=== PATIENT | male | born 1935 | race Caucasian/White ===

== ENCOUNTER 2016-03-02 06:15 | Day surgery (SDC) | payer OTHER ==
[2016-03-01 14:23] VITALS: BMI 27.3
[~2016-03-02 06:15] MED LIST: ACETAMINOPHEN 325 MG TABLET (FP) PO PRN; CHONDROITIN SU A/HYALUR SOD 1 KIT IO ONE; CIPROFLOXACIN HCL 0.3% OPHTH 2.5ML BOTTLE OP SCH; CYCLOPENTOLATE HCL 1% OPHTH SOLN 2 ML BOTTLE OP SCH; EPINEPHrine/PF 1 MG/1 ML (1:1,000) AMPULE SQ ONE; FLURBIPROFEN 0.03% OPHTH SOLN 2.5 ML BOTTLE OP SCH; LIDOCAINE HCL 1% PRESERVATIVE FREE - 30ML VIAL IO ONE; LIDOCAINE HCL 2% JELLY (5 ML/TUBE) TP ONE; PHENYLEPHRINE 2.5% OPHTH SOLN 15 ML BOTTLE OP SCH; POVIDONE-IODINE 5% OPHTHALMIC PREP 30 ML SOLUTION OS ONE; TROPICAMIDE 1% OPHTH SOLN 15 ML BOTTLE OP SCH
[2016-03-02 06:37] VITALS: TEMP 98.2
[2016-03-02] MEDS ORDERED: TROPICAMIDE 1% OPHTH SOLN 15 ML BOTTLE ONE (06:41)
[2016-03-02] MEDS ORDERED: FLURBIPROFEN 0.03% OPHTH SOLN 2.5 ML BOTTLE ONE (06:41)
[2016-03-02] MEDS ORDERED: CIPROFLOXACIN 0.3% EYE DROPS 5 ML BOTTLE ONE (06:41)
[2016-03-02] MEDS ORDERED: CYCLOPENTOLATE HCL 1% OPHTH SOLN 2 ML BOTTLE ONE (06:41)
[2016-03-02] MEDS ORDERED: PHENYLEPHRINE 2.5% OPHTH SOLN 15 ML BOTTLE ONE (06:41)
[2016-03-02] MEDS ORDERED: PHENYLEPHRINE 2.5% OPHTH SOLN 15 ML BOTTLE OS ONE ×2 (06:50→07:00)
[2016-03-02] MEDS ORDERED: CIPROFLOXACIN HCL 0.3% OPHTH 2.5ML BOTTLE OS ONE ×2 (06:50→07:00)
[2016-03-02] MEDS ORDERED: TROPICAMIDE 1% OPHTH SOLN 15 ML BOTTLE OS ONE ×2 (06:50→07:00)
[2016-03-02] MEDS ORDERED: FLURBIPROFEN 0.03% OPHTH SOLN 2.5 ML BOTTLE OS ONE ×2 (06:50→07:00)
[2016-03-02] MEDS ORDERED: CYCLOPENTOLATE HCL 1% OPHTH SOLN 2 ML BOTTLE OS ONE (06:50)
[2016-03-02] MEDS ORDERED: CYCLOPENTOLATE 2% OPHTH SOLN 2 ML BOTTLE OS ONE (07:00)
[2016-03-02] MEDS ORDERED: EPINEPHrine/PF 1 MG/1 ML (1:1,000) AMPULE ONE (07:18)
[2016-03-02] MEDS ORDERED: LIDOCAINE HCL/PF 1% SDV 5ML VIAL ONE (07:18)
[2016-03-02] MEDS ORDERED: LIDOCAINE HCL 2% JELLY (5 ML/TUBE) ONE (07:19)
[2016-03-02] MEDS ORDERED: VANCOMYCIN 500 MG VIAL (RESTRICTED TO ID ONLY) ONE (07:19)
[2016-03-02] MEDS ORDERED: WATER FOR INJ,STERILE 10 ML ONE (07:19)
[2016-03-02] MEDS ORDERED: POVIDONE-IODINE 5% OPHTHALMIC PREP 30 ML SOLUTION ONE (07:20)
[2016-03-02] MEDS ORDERED: LIDOCAINE HCL 2% JELLY (5 ML/TUBE) TP ONE (07:55)
[2016-03-02] MEDS ORDERED: MIDAZOLAM HCL 2 MG/2 ML SINGLE DOSE VIAL ONE (08:05)
[2016-03-02] MEDS ORDERED: POVIDONE-IODINE 5% OPHTHALMIC PREP 30 ML SOLUTION OS ONE (08:08)
[2016-03-02] MEDS ORDERED: CHONDROITIN SU A/HYALUR SOD 1 KIT IO ONE (08:16)
[2016-03-02] MEDS ORDERED: LIDOCAINE HCL 1% PRESERVATIVE FREE - 30ML VIAL IO ONE (08:16)
[2016-03-02] MEDS ORDERED: EPINEPHrine/PF 1 MG/1 ML (1:1,000) AMPULE SQ ONE (08:19)
[2016-03-02 12:17] VITALS: BP 128/67; PULSE 52
--- NOTE | 2016-03-02 17:31 | OP ---
DATE OF OPERATION: 03/02/2016 OPERATION: Phacoemulsification with posterior chamber intraocular lens implantation, left eye. Lens used [id number], Diopter power, Serial No. [id number] PREOPERATIVE DIAGNOSIS: Cataract, left eye. POSTOPERATIVE DIAGNOSIS: Cataract, left eye. SURGEON: Sara Billingsley M.D. ANESTHESIA: Topical MAC. COMPLICATIONS: None. PROCEDURE: The patient was brought to the operating room and correctly identified along with the operative site and the correct intraocular lens valentin. The patient was then prepped and draped in the usual sterile fashion including 5% Betadine solution in the conjunctival sac and an eyelid drape. An eyelid speculum was then placed in the eye. A paracentesis port was created and approximately 0.5 mL of preservative free Lidocaine was then injected into the eye. Viscoelastic was then injected to inflate the anterior chamber. A temporal clear corneal wound was created. A continuous circular capsulorrhexis was performed. The nucleus was then hydrodissected with BSS and removed with phacoemulsification. The remaining cortical material was irrigated and aspirated. Viscoelastic was injected to inflate the capsular bag and the intraocular lens was then implanted into the capsular bag. The remaining Viscoelastic was irrigated and aspirated from the eye. The IOL was noted to be well centered and completely covered by the anterior capsulorrhexis. Topical vancomycin was placed and the eye patched and shielded. All wounds were tested and found to be watertight. No suture was placed. The eye was then shielded. The patient was then discharged from the operating room in stable condition. SARA BILLINGSLEY M.D. [id number]
== END 2016-03-02 09:50 | disposition home or self-care (01) ==
LOC: JASU-SURG 06:15
PROVIDERS: ATTEND Ophthalmology
PROC: 08RK3JZ Replacement of Left Lens with Synthetic Substitute, Percutaneous Approach (ICD-10-PCS; principal; 2016-03-02 08:00)
DX: H26.9 Unspecified cataract (principal)

== ENCOUNTER 2016-03-16 06:21 | Day surgery (SDC) | payer OTHER ==
[2016-03-14 15:41] VITALS: BMI 27.3
[~2016-03-16 06:21] MED LIST changes: -CHONDROITIN SU A/HYALUR SOD 1 KIT IO ONE; -CIPROFLOXACIN HCL 0.3% OPHTH 2.5ML BOTTLE OP SCH; -CYCLOPENTOLATE HCL 1% OPHTH SOLN 2 ML BOTTLE OP SCH; -EPINEPHrine/PF 1 MG/1 ML (1:1,000) AMPULE SQ ONE; -FLURBIPROFEN 0.03% OPHTH SOLN 2.5 ML BOTTLE OP SCH; -LIDOCAINE HCL 1% PRESERVATIVE FREE - 30ML VIAL IO ONE; -LIDOCAINE HCL 2% JELLY (5 ML/TUBE) TP ONE; -PHENYLEPHRINE 2.5% OPHTH SOLN 15 ML BOTTLE OP SCH; -POVIDONE-IODINE 5% OPHTHALMIC PREP 30 ML SOLUTION OS ONE; -TROPICAMIDE 1% OPHTH SOLN 15 ML BOTTLE OP SCH
[2016-03-16] MEDS ORDERED: CIPROFLOXACIN 0.3% EYE DROPS 5 ML BOTTLE ONE (06:33)
[2016-03-16] MEDS ORDERED: FLURBIPROFEN 0.03% OPHTH SOLN 2.5 ML BOTTLE ONE (06:33)
[2016-03-16] MEDS ORDERED: TROPICAMIDE 1% OPHTH SOLN 15 ML BOTTLE ONE (06:34)
[2016-03-16] MEDS ORDERED: CYCLOPENTOLATE HCL 1% OPHTH SOLN 2 ML BOTTLE ONE (06:34)
[2016-03-16] MEDS ORDERED: PHENYLEPHRINE 2.5% OPHTH SOLN 15 ML BOTTLE ONE (06:34)
[2016-03-16 06:48] VITALS: TEMP 97.7
[2016-03-16] MEDS: CYCLOPENTOLATE HCL 1% OPHTH SOLN 2 ML BOTTLE OP SCH ×3 (06:55→07:10)
[2016-03-16] MEDS: TROPICAMIDE 1% OPHTH SOLN 15 ML BOTTLE OP SCH ×3 (06:55→07:10)
[2016-03-16] MEDS: FLURBIPROFEN 0.03% OPHTH SOLN 2.5 ML BOTTLE OP SCH ×3 (06:55→07:10)
[2016-03-16] MEDS: CIPROFLOXACIN HCL 0.3% OPHTH 2.5ML BOTTLE OP SCH ×3 (06:55→07:10)
[2016-03-16] MEDS: PHENYLEPHRINE 2.5% OPHTH SOLN 15 ML BOTTLE OP SCH ×2 (07:00→07:10)
[2016-03-16] MEDS ORDERED: ePHEDrine SULFATE 50 MG/1 ML AMPULE ONE ×2 (07:06)
[2016-03-16] MEDS ORDERED: SUCCINYLCHOLINE CHLORIDE 200 MG/10 ML VIAL ONE ×2 (07:06→07:51)
[2016-03-16] MEDS ORDERED: LIDOCAINE HCL/PF 1% SDV 5ML VIAL ONE (07:14)
[2016-03-16] MEDS ORDERED: EPINEPHrine/PF 1 MG/1 ML (1:1,000) AMPULE ONE (07:14)
[2016-03-16] MEDS ORDERED: LIDOCAINE HCL/PF 2% SDV 5ML VIAL ONE ×2 (07:15→07:55)
[2016-03-16] MEDS ORDERED: BUPIVACAINE HCL/PF 0.75% 10 ML VIAL ONE (07:15)
[2016-03-16] MEDS ORDERED: VANCOMYCIN 500 MG VIAL (RESTRICTED TO ID ONLY) ONE (07:15)
[2016-03-16] MEDS ORDERED: POVIDONE-IODINE 5% OPHTHALMIC PREP 30 ML SOLUTION ONE (07:15)
[2016-03-16] MEDS ORDERED: WATER FOR INJ,STERILE 10 ML ONE (07:15)
[2016-03-16] MEDS ORDERED: PROPOFOL 20 ML ONE (07:48)
[2016-03-16] MEDS ORDERED: BUPIVACAINE HCL/PF 0.75% 10 ML VIAL RB ONE (08:10)
[2016-03-16] MEDS ORDERED: LIDOCAINE HCL/PF 2% SDV 5ML VIAL PNB ONE (08:10)
[2016-03-16] MEDS ORDERED: POVIDONE-IODINE 5% OPHTHALMIC PREP 30 ML SOLUTION OD ONE (08:14)
[2016-03-16] MEDS ORDERED: EPINEPHrine/PF 1 MG/1 ML (1:1,000) AMPULE IO ONE (08:22)
[2016-03-16] MEDS ORDERED: CHONDROITIN SU A/HYALUR SOD 1 KIT IO ONE (08:22)
[2016-03-16] MEDS ORDERED: BSS (NA/CA/MG/K) BALANCED SALT SOLUTION OPHTH SOLN 15 ML BOTTLE OD ONE (08:22)
[2016-03-16] MEDS ORDERED: LIDOCAINE HCL 1% PRESERVATIVE FREE - 30ML VIAL IO ONE (08:22)
[2016-03-16] MEDS ORDERED: TRYPAN BLUE 0.5 ML DISP.SYRIN IO ONE (08:22)
[2016-03-16 09:21] VITALS: PULSE 50
[2016-03-16] MEDS ORDERED: LACTATED RINGERS SOLUTION 1,000 ML IV SCH (09:30)
[2016-03-16] MEDS ORDERED: TRYPAN BLUE 0.5 ML DISP.SYRIN ONE (10:19)
[2016-03-16 13:29] VITALS: BP 130/70
--- NOTE | 2016-03-16 19:45 | OP ---
DATE OF OPERATION: 03/16/2016 PREOPERATIVE DIAGNOSIS: Cataract, right eye. POSTOPERATIVE DIAGNOSIS: Cataract, right eye. PROCEDURE: Phacoemulsification of right cataract with posterior chamber intraocular lens implantation, capsule staining with Trypan blue. LENS USED: [id number], 21.5 diopter power, serial number [id number]. ANESTHESIA: Peribulbar/modified van Lint/MAC. COMPLICATIONS: None. PROCEDURE: The patient was brought to operating room, correctly identified along with the operative site as well as correct intraocular lens avlentin. He was then given a peribulbar block under sedation with 5 mL of 1:1 mixture of 2% lidocaine and 0.75% bupivacaine. Then 2 mL of the same mixture was given as a modified van Lint. The eye was then prepped and draped in the usual sterile fashion including 5% Betadine solution in the conjunctival sac and eyelid drape. An eyelid speculum was then placed into the right eye. A dense cataract was noted. A paracentesis port was created. Intracameral lidocaine, approximately 0.5 mL of 1% preservative-free lidocaine was given intracamerally. The capsule was then stained with Trypan blue beneath an air bubble and irrigated from the eye. Viscoelastic was injected into the anterior chamber and a temporal clear cornea was created. A continuous circular capsulorrhexis was performed. The nucleus was then hydro-dissected with BSS and removed with phacoemulsification via a [id number] approach. The cortical material was then irrigated and aspirated from the eye. The temporal clear corneal wound was noted to be gaping, perhaps somewhat small corneal burn. Viscoelastic was injected into the capsular bag and the lens injected into the capsular bag. The temporal clear cornea was still noted to be leaking, so a single 10-0 nylon suture was placed in it. A 2nd paracentesis port was created and bimanual irrigation and aspiration was performed of the viscoelastic. The wound was still noticed to leak and a 2nd 10-0 nylon suture was placed. At this time, with stromal hydration, the anterior chamber was noted to be stable and no leakage noted from the wound. The intraocular lens was noted to be well centered and covered by the anterior capsule border, anterior chamber formed and stable. Topical Vancomycin was given and the eye patched and shielded, and patient was discharged from the operating room in a stable condition. Abram [id number] MTDMalachi
== END 2016-03-16 10:15 | disposition home or self-care (01) ==
LOC: JASU-SURG 06:21
PROVIDERS: ATTEND Ophthalmology
PROC: 08RJ3JZ Replacement of Right Lens with Synthetic Substitute, Percutaneous Approach (ICD-10-PCS; principal; 2016-03-16 08:00)
DX: H26.9 Unspecified cataract (principal)

== ENCOUNTER 2016-08-18 16:13 | Emergency (ER) | payer OTHER ==
[2016-08-18 16:17] VITALS: BP 116/60; PULSE 64; TEMP 98.4; BMI 27.3
[2016-08-18] MEDS ORDERED: METHOCARBAMOL 500 MG TABLET PO ONE (16:51)
[2016-08-18] MEDS ORDERED: IBUPROFEN 400 MG TABLET (FP) PO ONE ×2 (16:51→17:23)
--- NOTE | 2016-08-18 16:55 | PDOC ---
History of Present Illness - General History Source: Patient Exam Limitations: No Limitations - History of Present Illness Initial Comments: 08/18/16 16:48 This patient is an 81-year-old M who presents to the ER with a complaint of 2 weeks of left flank pain Pt states his symptoms began 2 weeks ago He report sharp left flank pain which is bearable when he is seated but worsens with standing Pain is 7/10 with standing, no radiation down the leg, no bowel or bladder incontinence He denies fevers, chills, hematuria, pyuria He denies trauma to the left flank He denies rash He denies abdominal pain, diarrhea He has not previously had symptoms like this PMH: HTN, HLD PSH: denies Meds: Metoprolol 08/18/16 16:51 GENERAL/CONSTITUTIONAL: No: fever, chills, weakness, loss of appetite. HEAD, EYES, EARS, NOSE AND THROAT: No: change in vision, ear pain, discharge, sore throat, throat swelling. CARDIOVASCULAR: No: chest pain, lightheadedness, palpitations, syncope RESPIRATORY: No: cough, shortness of breath, wheezing, hemoptysis, stridor. GASTROINTESTINAL: No: nausea, vomiting, diarrhea, abdominal cramping, rectal bleeding, constipation. GENITOURINARY: No: dysuria, hematuria, frequency, urgency, flank pain. MUSCULOSKELETAL: Yes: back/flank pain No: neck pain, muscle swelling or pain SKIN: No: lesions, pallor, rash or easy bruising. NEUROLOGIC: No: headache, vertigo, paresthesias, weakness ENDOCRINE: No: unexplained weight gain or loss HEMATOLOGIC/LYMPHATIC: No: anemia, easy bleeding, swelling nodes. GENERAL: The patient is in no acute distress. HEAD: Normal with no signs of trauma. EYES: PERRLA, EOMI, sclera anicteric, conjunctiva clear. ENT: Ears normal, nares patent, oropharynx clear without exudates. Moist mucous membranes. NECK: Normal range of motion, supple without lymphadenopathy, JVD, or masses. LUNGS: Breath sounds equal, clear to auscultation bilaterally. No wheezes, and no crackles. HEART:Regular rate and rhythm, normal S1 and S2 without murmur, rub or gallop. ABDOMEN: Soft, nontender, normoactive bowel sounds. No guarding, no rebound. No masses palpable. EXTREMITIES: Normal range of motion, no edema. No clubbing or cyanosis. No erythema, or tenderness. NEUROLOGICAL: Cranial nerves II through XII grossly intact. Normal speech. No focal neurological deficits. MUSCULOSKELETAL: Yes: left flank pain Back non-tender to palpation, no CVA tenderness SKIN: No lesions on skin Warm, Dry, normal turgor, no rashes or lesions noted. <Manju Denton - Last Filed: 08/18/16 18:54> <Melina Barton - Last Filed: 08/18/16 18:58> - General Chief Complaint: Pain Stated Complaint: PAIN, ACUTE Time Seen by Provider: 08/18/16 16:19 Past History - Past Medical History Anemia: No Asthma: No Cancer: No Cardiac Disorders: Yes (ARRHYTHMIA ?) CVA: No COPD: No CHF: No Dementia: No Diabetes: No GI Disorders: No Disorders: No HTN: Yes Hypercholesterolemia: Yes Liver Disease: No Seizures: No Thyroid Disease: No - Immunization History Immunization Up to Date: Yes - Psycho/Social/Smoking Cessation Hx Anxiety: No Suicidal Ideation: No Smoking Status: No Smoking History: Never smoked Have you smoked in the past 12 months: No Number of Cigarettes Smoked Daily: 0 Hx Alcohol Use: No Drug/Substance Use Hx: No Substance Use Type: None Hx Substance Use Treatment: No <Manju Denton - Last Filed: 08/18/16 18:54> <Melina Barton - Last Filed: 08/18/16 18:58> - Past Medical History Allergies/Adverse Reactions: Allergies Allergy/AdvReac Type Severity Reaction Status Date / Time No Known Allergies Allergy Verified 08/18/16 16:14 Home Medications: Ambulatory Orders Simvastatin [Zocor -] 20 mg PO HS 07/13/13 Amlodipine Besylate 5 mg PO HS 03/01/16 Aspirin [ASA -] 81 mg PO DAILY 03/01/16 Bisoprolol Fumarate [Zebeta (Nf) -] 5 mg PO DAILY 03/01/16 Ibuprofen [Motrin -] 400 mg PO TID PRN #21 tablet 08/18/16 Lidocaine 5% Patch [Lidoderm Patch -] 1 patch TP DAILY PRN #30 patch 08/18/16 *Physical Exam - Vital Signs Last Vital Signs Temp Pulse Resp BP Pulse Ox 98.4 F 64 18 116/60 99 08/18/16 16:13 08/18/16 16:13 08/18/16 16:13 08/18/16 16:13 08/18/16 16:13 <Manju Denton - Last Filed: 08/18/16 18:54> - Vital Signs Last Vital Signs Temp Pulse Resp BP Pulse Ox 98.4 F 64 18 116/60 99 08/18/16 16:13 08/18/16 16:13 08/18/16 16:13 08/18/16 16:13 08/18/16 16:13 <Melina Barton - Last Filed: 08/18/16 18:58> ED Treatment Course - LABORATORY CBC & Chemistry Diagram: 08/18/16 16:42 08/18/16 16:42 - RADIOLOGY Radiology Studies Ordered: Category Date Time Status SPIRAL- RENAL-STONE CT [CT] Stat CT Scan 08/18/16 16:48 Ordered <Manju Denton - Last Filed: 08/18/16 18:54> - LABORATORY CBC & Chemistry Diagram: 08/18/16 16:42 08/18/16 16:42 - ADDITIONAL ORDERS Additional order review: Laboratory Results 08/18/16 08/18/16 17:21 16:42 Sodium 140 Potassium 4.3 Chloride 101 Carbon Dioxide 31 Anion Gap 8 BUN 22 H D Creatinine 1.2 Creat Clearance w eGFR 57.96 Random Glucose 97 Calcium 8.7 Total Bilirubin 1.3 H AST 18 ALT 19 Alkaline Phosphatase 63 Total Protein 7.7 Albumin 3.7 Urine Color Yellow Urine Appearance Clear Urine pH 6.0 Urine Protein Negative Urine Glucose (UA) Negative Urine Ketones Negative Urine Blood Negative Urine Nitrite Negative Urine Bilirubin Negative Urine Urobilinogen 4.0 e.u/dl Ur Leukocyte Esterase Negative 08/18/16 16:42 RBC 4.77 MCV 95.6 MCHC 34.1 RDW 11.9 MPV 8.5 Neutrophils % 55.0 D Lymphocytes % 31.2 D Monocytes % 8.6 Eosinophils % 4.8 H Basophils % 0.4 - RADIOLOGY Radiograph Interpretation: EXAM#: TYPE/EXAM: RESULT: [id number] CT/SPIRAL- RENAL-STONE CT Renal stone CT without contrast Clinical information: left flank pain No urinary tract calculus or hydroureteronephrosis is identified. There has been no definite interval change in comparison to prior CT studies of 06/05/2014 and 2011. A 0.4 cm right renal and 5.4 cm left renal cortical cysts are seen. Prostate enlargement which is at least moderate. Mild diffuse urinary bladder wall thickening probably secondary to chronic outlet obstruction. Left and right-sided colonic diverticulosis is noted without evidence of acute diverticulitis. There is no evidence of pneumoperitoneum, free intraperitoneal fluid or bowel obstruction. The liver, spleen, pancreas, gallbladder and adrenal glands demonstrate no discrete noncontrast pathology. There is no aortic aneurysm. No obvious lymphadenopathy is seen. The visualized osseous structures demonstrate no obvious CT evidence of acute pathology. Multilevel thoracolumbar degenerative disc changes with spondylosis. IMPRESSION: No evidence of urolithiasis or hydronephrosis. There are no definite CT findings of acute pathology. Colonic diverticulosis. Reported By: Satnam Chacon MD 08/18/16 3406 - Medications Given in the ED: ED Medications Discontinued Medications Generic Name Dose Route Start Last Admin Trade Name Freq PRN Reason Stop Dose Admin Ibuprofen 400 mg 08/18/16 16:51 08/18/16 17:22 Motrin - PO 08/18/16 16:52 400 mg ONCE ONE Administration Methocarbamol 500 mg 08/18/16 16:51 08/18/16 17:22 Robaxin - PO 08/18/16 16:52 500 mg ONCE ONE Administration <Melina Barton - Last Filed: 08/18/16 18:58> Medical Decision Making - Medical Decision Making 08/18/16 16:55 81 yo M presenting to the ER with a complaint of left flank pain DD includes Kidney stone, musculoskeletal pain, herniated disc, spinal stenosis Unlikely Retroperitoneal rupture AAA Will do Basic labs UA Spiral CT Will re assess 08/18/16 18:03 Laboratory Tests 08/18/16 16:42 WBC 5.4 Hgb 15.6 Hct 45.6 Plt Count 180 Neutrophils % 55.0 D Lymphocytes % 31.2 D 08/18/16 18:21 Laboratory Tests 08/18/16 08/18/16 16:42 17:21 Sodium 140 Potassium 4.3 Chloride 101 Carbon Dioxide 31 BUN 22 H D Creatinine 1.2 Random Glucose 97 Urine Blood Negative Urine Nitrite Negative Ur Leukocyte Esterase Negative Pending Spiral CT Unlikely kidney stones Must likely musculoskeletal pain 08/18/16 18:53 CT: no stones Will discharge to home Follow up with PMD <Manju Denton - Last Filed: 08/18/16 18:54> *DC/Admit/Observation/Transfer - Discharge Dispostion Admit: No <Manju Denton - Last Filed: 08/18/16 18:54> - Attestations Scribe Attestion: 08/18/16 18:58 Documentation prepared by Melina Barton, acting as paramedical aide for Manju Denton MD <Melina Barton - Last Filed: 08/18/16 18:58> Diagnosis at time of Disposition: Musculoskeletal back pain - Discharge Dispostion Disposition: HOME Condition at time of disposition: Stable - Prescriptions Prescriptions: Lidocaine 5% Patch [Lidoderm Patch -] 1 patch TP DAILY PRN #30 patch PRN Reason: Pain Ibuprofen [Motrin -] 400 mg PO TID PRN #21 tablet PRN Reason: Pain - Referrals Referrals: Lydia Landa MD [Primary Care Provider] - - Patient Instructions Printed Discharge Instructions: DI for Musculoskeletal Pain Additional Instructions: Sagar por jaime lugo al ER Por favor use medicamentos para el dolor segn lo prescrito Por favor, monitoree si presenta nuevos sntomas Usted debe hacer un seguimiento con dale mdico de atencin primaria dentro de 2- 3 gentile Thank you for coming to the ER today Please use pain medications as prescribed Please monitor yourself for any new symptoms You should follow up with your primary care physician within 2-3 days Print Language: BELARUSIAN
[2016-08-18] MEDS ORDERED: METHOCARBAMOL 500 MG TABLET ONE (17:22)
[2016-08-18 17:54] LABS: BASOPHIL 0.4 % (0-2.0); EOSINOPHIL 4.8 % (0-4.5); MCH 32.6 pg (25.7-33.7); MCHC 34.1 g/dl (32.0-35.9); MEAN CELL VOLUME 95.6 fl (80-96); MEAN PLT VOLUME 8.5 fl (7.5-11.1); PLATELET COUNT 180 K/MM3 (134-434); RDW 11.9 % (11.9-15.9); WHITE BLOOD COUNT 5.4 K/mm3 (4.0-10.0)
[2016-08-18 18:06] LABS: URINE APPEARANCE CLEAR; URINE BILIRUBIN NEGATIVE (NEGATIVE); URINE BLOOD NEGATIVE (NEGATIVE); URINE COLOR YELLOW; URINE GLUCOSE (UA) NEGATIVE (NEGATIVE); URINE KETONE NEGATIVE (NEGATIVE); URINE LEUK ESTERASE NEGATIVE (NEGATIVE); URINE NITRITE NEGATIVE (NEGATIVE); URINE PROTEIN NEGATIVE (NEGATIVE); URINE UROBILINOGEN 4.0 E.U/dl mg/dL (0.2-1.0)
[2016-08-18 18:18] LABS: ALBUMIN 3.7 g/dl (3.4-5.0); ALK PHOS 63 U/L (45-117); ANION GAP 8 (8-16); BILIRUBIN,TOTAL 1.3 mg/dL (0.2-1.0); CALCIUM 8.7 mg/dL (8.5-10.1); CO2 31 mmol/L (21-32); CREATININE 1.2 mg/dL (0.7-1.3); GLUCOSE,RANDOM 97 mg/dL (74-106); SGOT/AST 18 U/L (15-37); SGPT/ALT 19 U/L (12-78); TOT PROT 7.7 g/dl (6.4-8.2)
--- NOTE | 2016-08-21 12:48 | PDOC ---
Patient Follow-up (Call Back) - Post ED Follow - Up Chief Complaint: Pain Condition at time of discharge: Stable Disposition at time of original discharge: HOME Reason for Call Back: Abnwl. 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 pt is doing well no fever no pain.
== END 2016-08-18 19:06 | disposition home or self-care (01) ==
LOC: SUPCPDRO 16:13 → JER 16:13
DX: R10.32 Left lower quadrant pain (principal); K57.90 Diverticulosis of intestine, part unspecified, without perforation or abscess without bleeding; I10 Essential (primary) hypertension; E78.00 Pure hypercholesterolemia, unspecified
CPT/HCPCS: 36415; 74176; 80053; 81003; 85025; 87040; 87086; 87186; 99283-25

== ENCOUNTER 2017-02-28 15:46 | Emergency (ER) | payer OTHER ==
--- NOTE | 2017-02-28 15:50 | PDOC ---
Rapid Medical Evaluation Time Seen by Provider: 02/28/17 15:48 Medical Evaluation: Allergies Allergy/AdvReac Type Severity Reaction Status Date / Time No Known Allergies Allergy Verified 08/18/16 16:14 02/28/17 15:50 I have performed a brief in-person evaluation of this patient. The patient presents with a chief complaint of: RIBEIRO w/ dizziness in setting of elevated BP. H/o HLD, HTN. PMD is Nimco Pertinent physical exam findings:BP 190/90, otherwise stable w/ clear chest/ lungs I have ordered the following:ekg/labs The patient will proceed to the ED for further evaluation. 02/28/17 15:57
[2017-02-28 15:56] VITALS: BMI 28.5
[2017-02-28 16:15] LABS: URINE APPEARANCE CLEAR; URINE BILIRUBIN NEGATIVE (NEGATIVE); URINE BLOOD NEGATIVE (NEGATIVE); URINE COLOR COLORLESS; URINE GLUCOSE (UA) NEGATIVE (NEGATIVE); URINE KETONE NEGATIVE (NEGATIVE); URINE LEUK ESTERASE NEGATIVE (NEGATIVE); URINE NITRITE NEGATIVE (NEGATIVE); URINE PROTEIN NEGATIVE (NEGATIVE); URINE UROBILINOGEN NEGATIVE mg/dL (0.2-1.0)
[2017-02-28 16:17] LABS: BASO % 0.7 % (0-2.0); EOS % 4.2 % (0-4.5); HEMATOCRIT 51.5 % (35.4-49); HEMOGLOBIN 17.3 GM/dL (11.7-16.9); LYMPH % 37.5 % (8-40); MCH 32.2 pg (25.7-33.7); MCHC 33.6 g/dl (32.0-35.9); MEAN PLT VOLUME 8.1 fl (7.5-11.1); MONO % 7.9 % (3.8-10.2); NEUT % 49.7 % (42.8-82.8); PLATELET COUNT 157 K/MM3 (134-434); RBC 5.36 M/mm3 (4.00-5.60)
[2017-02-28 16:52] LABS: ALBUMIN 3.8 g/dl (3.4-5.0); ANION GAP 7 (8-16); BLOOD UREA NITROGEN 15 mg/dL (7-18); CHLORIDE 98 mmol/L (98-107); CO2 32 mmol/L (21-32); GLUCOSE,RANDOM 96 mg/dL (74-106); POTASSIUM 4.2 mmol/L (3.5-5.1); SGOT/AST 12 U/L (15-37); SGPT/ALT 18 U/L (12-78); SODIUM 137 mmol/L (136-145)
[2017-02-28 17:41] LABS: ALK PHOS 57 U/L (45-117); BILIRUBIN,TOTAL 1.5 mg/dL (0.2-1.0)
--- NOTE | 2017-02-28 20:18 | PDOC ---
History of Present Illness - General History Source: Patient Exam Limitations: No Limitations - History of Present Illness Initial Comments: 02/28/17 20:21 The patient is an 81 year old male with a significant PMH of HTN who presents to the emergency department after being sent by Dr. Chakraborty for evaluation of headache and elevated BP earlier today. The patient currently denies headache at presentation. The patient reports compliance with his medications. The patient denies chest pain, shortness of breath, headache and dizziness. Denies fever, chills, nausea, vomit, diarrhea and constipation. Denies dysuria, frequency, urgency and hematuria. Allergies: NKA Past surgical history: None reported. Social history: No reported cigarette, alcohol, or drug use. PCP: Dr. Chakraborty <Jae Koenig - Last Filed: 02/28/17 20:21> - General History Source: Patient <AyanRamón hernández - Last Filed: 02/28/17 21:37> - General Chief Complaint: Lightheaded Stated Complaint: PALPITATIONS, HEADACHE Time Seen by Provider: 02/28/17 15:48 Past History <Jae Koenig - Last Filed: 02/28/17 20:21> - Past Medical History Anemia: No Asthma: No Cancer: No Cardiac Disorders: Yes (ARRHYTHMIA ?) CVA: No COPD: No CHF: No Dementia: No Diabetes: No GI Disorders: No Disorders: No HTN: Yes Hypercholesterolemia: Yes Liver Disease: No Seizures: No Thyroid Disease: No - Immunization History Immunization Up to Date: Yes - Suicide/Smoking/Psychosocial Hx Smoking Status: No Smoking History: Never smoked Have you smoked in the past 12 months: No Number of Cigarettes Smoked Daily: 0 Information on smoking cessation initiated: No Hx Alcohol Use: No Drug/Substance Use Hx: No Substance Use Type: None Hx Substance Use Treatment: No <Ramón Stanford - Last Filed: 02/28/17 21:37> - Past Medical History Allergies/Adverse Reactions: Allergies Allergy/AdvReac Type Severity Reaction Status Date / Time No Known Allergies Allergy Verified 02/28/17 15:57 Home Medications: Ambulatory Orders Simvastatin [Zocor -] 20 mg PO HS 07/13/13 Amlodipine Besylate 5 mg PO HS 03/01/16 Aspirin [ASA -] 81 mg PO DAILY 03/01/16 Lidocaine 5% Patch [Lidoderm Patch -] 1 patch TP DAILY PRN #30 patch 08/18/16 Review of Systems - Review of Systems Able to Perform ROS?: Yes Comments:: 02/28/17 20:22 CONSTITUTIONAL: Absent: fever, chills, diaphoresis, generalized weakness, malaise, loss of appetite HEENT: Absent: rhinorrhea, nasal congestion, throat pain, throat swelling, difficulty swallowing, mouth swelling, ear pain, eye pain, visual Changes CARDIOVASCULAR: Absent: chest pain, syncope, palpitations, irregular heart rate, lightheadedness , peripheral edema RESPIRATORY: Absent: cough, shortness of breath, dyspnea with exertion, orthopnea, wheezing, stridor, hemoptysis GASTROINTESTINAL: Absent: abdominal pain, abdominal distension, nausea, vomiting, diarrhea, constipation, melena, hematochezia GENITOURINARY: Absent: dysuria, frequency, urgency, hesitancy, hematuria, flank pain, genital pain MUSCULOSKELETAL: Absent: myalgia, arthralgia, joint swelling SKIN: Absent: rash, itching, pallor HEMATOLOGIC/IMMUNOLOGIC: Absent: easy bleeding, easy bruising, lymphadenopathy, frequent infections ENDOCRINE: Absent: unexplained weight gain, unexplained weight loss, heat intolerance, cold intolerance NEUROLOGIC: (+) Headache (resolved). Absent: focal weakness or paresthesias, dizziness, unsteady gait, seizure, mental status changes, bladder or bowel incontinence PSYCHIATRIC: Absent: anxiety, depression, suicidal or homicidal ideation, hallucinations. <Jae Koenig - Last Filed: 02/28/17 20:21> *Physical Exam - Vital Signs Last Vital Signs Temp Pulse Resp BP Pulse Ox 98.2 F 53 L 19 190/90 02/28/17 15:50 02/28/17 15:50 02/28/17 15:50 02/28/17 15:50 - Physical Exam Comments: 02/28/17 20:22 GENERAL: Well developed, well nourished. Awake and alert. No acute distress. HEENT: Normocephalic, atraumatic. PERRLA, EOMI. No conjunctival pallor. Sclera are non- icteric. Moist mucous membranes. Oropharynx is clear. NECK: Supple. Full ROM. No JVD. Carotid pulses 2+ and symmetric, without bruits. No thyromegaly. No lymphadenopathy. CARDIOVASCULAR: Regular rate and rhythm. No murmurs, rubs, or gallops. Distal pulses are 2+ and symmetric. PULMONARY: No evidence of respiratory distress. Lungs clear to auscultation bilaterally. No wheezing, rales or rhonchi. ABDOMINAL: Soft. Non-tender. Non-distended. No rebound or guarding. No organomegaly. Normoactive bowel sounds. MUSCULOSKELETAL Normal range of motion at all joints. No bony deformities or tenderness. No CVA tenderness. EXTREMITIES: No cyanosis. No clubbing. No edema. No calf tenderness. SKIN: Warm and dry. Normal capillary refill. No rashes. No jaundice. NEUROLOGICAL: Alert, awake, appropriate. Cranial nerves 2-12 intact. No deficits to light touch and temperature in face, upper extremities and lower extremities. No motor deficits in the in face, upper extremities and lower extremities. Normoreflexic in the upper and lower extremities. Normal speech. Toes are downgoing bilaterally. Gait is normal without ataxia. PSYCHIATRIC: Cooperative. Good eye contact. Appropriate mood and affect. <Jae Koenig - Last Filed: 02/28/17 20:21> - Vital Signs Last Vital Signs Temp Pulse Resp BP Pulse Ox 98.2 F 53 L 19 190/90 02/28/17 15:50 02/28/17 15:50 02/28/17 15:50 02/28/17 15:50 <Ramón Stanford - Last Filed: 02/28/17 21:37> ED Treatment Course - LABORATORY CBC & Chemistry Diagram: 02/28/17 16:00 02/28/17 16:00 - ADDITIONAL ORDERS Additional order review: Laboratory Results 02/28/17 02/28/17 16:05 16:00 Sodium 137 Potassium 4.2 Chloride 98 Carbon Dioxide 32 Anion Gap 7 L BUN 15 D Creatinine 1.0 Creat Clearance w eGFR > 60 Random Glucose 96 Calcium 9.0 Total Bilirubin 1.5 H AST 12 L D ALT 18 Alkaline Phosphatase 57 Total Protein 8.0 Albumin 3.8 Urine Color Colorless Urine Appearance Clear Urine pH 7.0 Ur Specific [place] 1.001 Urine Protein Negative Urine Glucose (UA) Negative Urine Ketones Negative Urine Blood Negative Urine Nitrite Negative Urine Bilirubin Negative Urine Urobilinogen Negative Ur Leukocyte Esterase Negative 02/28/17 16:00 RBC 5.36 MCV 96.0 MCHC 33.6 RDW 12.0 MPV 8.1 Neutrophils % 49.7 Lymphocytes % 37.5 D Monocytes % 7.9 Eosinophils % 4.2 Basophils % 0.7 <Jae Koenig - Last Filed: 02/28/17 20:21> - LABORATORY CBC & Chemistry Diagram: 02/28/17 16:00 02/28/17 16:00 - ADDITIONAL ORDERS Additional order review: Laboratory Results 02/28/17 02/28/17 16:05 16:00 Sodium 137 Potassium 4.2 Chloride 98 Carbon Dioxide 32 Anion Gap 7 L BUN 15 D Creatinine 1.0 Creat Clearance w eGFR > 60 Random Glucose 96 Calcium 9.0 Total Bilirubin 1.5 H AST 12 L D ALT 18 Alkaline Phosphatase 57 Total Protein 8.0 Albumin 3.8 Urine Color Colorless Urine Appearance Clear Urine pH 7.0 Ur Specific [place] 1.001 Urine Protein Negative Urine Glucose (UA) Negative Urine Ketones Negative Urine Blood Negative Urine Nitrite Negative Urine Bilirubin Negative Urine Urobilinogen Negative Ur Leukocyte Esterase Negative 02/28/17 16:00 RBC 5.36 MCV 96.0 MCHC 33.6 RDW 12.0 MPV 8.1 Neutrophils % 49.7 Lymphocytes % 37.5 D Monocytes % 7.9 Eosinophils % 4.2 Basophils % 0.7 <Ramón Stanford - Last Filed: 02/28/17 21:37> Medical Decision Making - Medical Decision Making 02/28/17 20:19 Dr. Stanford: The scribe's documentation has been prepared under my direction and personally reviewed by me in its entirery. I confirm that the note above accurately reflects all work, treatment, procedures, and medical decision making performed by me. Pt feels better. Pt labs are stable. 02/28/17 21:34 BP 168/72 after IV Hydralazine 10mg. Pt will be discharged. Advised to follow up with his pcp. <Ramón Stanford - Last Filed: 02/28/17 21:37> *DC/Admit/Observation/Transfer - Attestations Scribe Attestion: 02/28/17 20:22 Documentation prepared by Jae Koengi, acting as medical administrator for Ramón Stanford DO. <Jae Koenig - Last Filed: 02/28/17 20:21> - Discharge Dispostion Admit: No <Ramón Stanford - Last Filed: 02/28/17 21:37> Diagnosis at time of Disposition: Hypertension - Discharge Dispostion Disposition: HOME Condition at time of disposition: Stable - Referrals Referrals: Lydia Landa MD [Primary Care Provider] - - Patient Instructions Printed Discharge Instructions: High Blood Pressure Additional Instructions: Please follow up with your doctor tomorrow or as soon as possible. Please discuss with him the need to modify your medications. Print Language: MARTINIQUAIS - Post Discharge Activity
[2017-02-28] MEDS ORDERED: hydrALAZINE HCL 20 MG/ML VIAL IVPUSH ONE (20:26)
[2017-02-28] MEDS ORDERED: hydrALAZINE HCL 20 MG/ML VIAL ONE (20:31)
[2017-02-28 21:37] VITALS: BP 168/72; PULSE 70; TEMP 97.5
== END 2017-02-28 21:45 | disposition home or self-care (01) ==
LOC: JER 15:46
PROC: 3E033GC Introduction of Other Therapeutic Substance into Peripheral Vein, Percutaneous Approach (ICD-10-PCS; principal; 2017-02-28)
DX: I10 Essential (primary) hypertension (principal); E78.00 Pure hypercholesterolemia, unspecified
CPT/HCPCS: 36415; 80053; 81003; 85025; 96374; 99282-25

== ENCOUNTER 2017-03-05 05:08 | Emergency (ER) | payer OTHER ==
--- NOTE | 2017-03-05 05:26 | PDOC ---
History of Present Illness - General History Source: Patient Exam Limitations: No Limitations - History of Present Illness Initial Comments: 03/05/17 07:05 Patient is an 81 year old male with a significant past medical history of who presents to the ED with complaints of high blood pressure that began this morning at 4 am. Patient reports waking up this morning with lower neck and bilateral lower extremity pain. He reports neck pain and bilateral lower extremity pain is a pressured pain that only begins when his blood pressure is increasing. Patient states he took his blood pressure after waking up, and took his BP medication after he realized it was high. He reports coming into the ED afterwards for further evaluation. Patient reports taking Metoprolol since 2004 but states he has recently started taking Hydrochlorothiazide. Denies chest pain, Sob. Denies nausea, vomiting. Denies fevers, chills. Denies change in vision, loss of consciousness. Denies any other symptoms. Allergies: None Social history: No smoking. No alcohol. No illicit drugs. Surgical history: None PMD: Dr. Chakraborty <Yuri Hill - Last Filed: 03/05/17 07:05> <Brianne Washington - Last Filed: 03/08/17 15:40> - General Chief Complaint: Blood Pressure Problem Stated Complaint: BLOOD PRESSURE PROBLEM Time Seen by Provider: 03/05/17 05:25 Past History <Yuri Hill - Last Filed: 03/05/17 07:05> - Past Medical History Anemia: No Asthma: No Cancer: No Cardiac Disorders: Yes (ARRHYTHMIA ?) CVA: No COPD: No CHF: No Dementia: No Diabetes: No GI Disorders: No Disorders: No HTN: Yes Hypercholesterolemia: Yes Liver Disease: No Seizures: No Thyroid Disease: No - Immunization History Immunization Up to Date: Yes - Suicide/Smoking/Psychosocial Hx Smoking Status: No Smoking History: Never smoked Have you smoked in the past 12 months: No Number of Cigarettes Smoked Daily: 0 Information on smoking cessation initiated: No Hx Alcohol Use: No Drug/Substance Use Hx: No Substance Use Type: None Hx Substance Use Treatment: No <Brianne Washington - Last Filed: 03/08/17 15:40> - Past Medical History Allergies/Adverse Reactions: Allergies Allergy/AdvReac Type Severity Reaction Status Date / Time No Known Allergies Allergy Verified 03/08/17 03:05 Home Medications: Ambulatory Orders Bisoprolol Fumarate 5 mg PO DAILY 03/05/17 Hydrochlorothiazide [Hctz -] 25 mg PO DAILY 03/05/17 Simvastatin 20 mg PO DAILY 03/05/17 Review of Systems - Review of Systems Able to Perform ROS?: Yes Comments:: 03/05/17 07:05 GENERAL/CONSTITUTIONAL: No fever or chills. No weakness. HEAD, EYES, EARS, NOSE AND THROAT: No change in vision. No ear pain or discharge. No sore throat. CARDIOVASCULAR: No chest pain or shortness of breath. RESPIRATORY: No cough, wheezing, or hemoptysis. GASTROINTESTINAL: No nausea, vomiting, diarrhea or constipation. GENITOURINARY: No dysuria, frequency, or change in urination. MUSCULOSKELETAL: No joint or muscle swelling or pain. No neck or back pain. SKIN: No rash NEUROLOGIC: No headache, vertigo, loss of consciousness, or change in strength/ sensation. ENDOCRINE: No increased thirst. No abnormal weight change. HEMATOLOGIC/LYMPHATIC: No anemia, easy bleeding, or history of blood clots. ALLERGIC/IMMUNOLOGIC: No hives or skin allergy. <Yuri Hill - Last Filed: 03/05/17 07:05> *Physical Exam - Vital Signs Last Vital Signs Temp Pulse Resp BP Pulse Ox 98.0 F 62 16 166/77 98 03/05/17 05:18 03/05/17 05:18 03/05/17 05:18 03/05/17 05:18 03/05/17 05:18 - Physical Exam Comments: 03/05/17 07:05 GENERAL: Awake, alert, and fully oriented, in no acute distress HEAD: No signs of trauma EYES: PERRLA, EOMI, sclera anicteric, conjunctiva clear ENT: Auricles normal inspection, hearing grossly normal, nares patent, oropharynx clear without exudates. Moist mucosa NECK: Normal ROM, supple, no lymphadenopathy, JVD, or masses LUNGS: Breath sounds equal, clear to auscultation bilaterally. No wheezes, and no crackles HEART: +Bradycardia on ECG. Regular rate and rhythm, normal S1 and S2, no murmurs, rubs or gallops ABDOMEN: Soft, nontender, normoactive bowel sounds. No guarding, no rebound. No masses EXTREMITIES: Normal range of motion, no edema. No clubbing or cyanosis. No cords, erythema, or tenderness NEUROLOGICAL: Cranial nerves II through XII grossly intact. Normal speech, normal gait SKIN: Warm, Dry, normal turgor, no rashes or lesions noted. <Yuri Hill - Last Filed: 03/05/17 07:05> - Vital Signs Last Vital Signs Temp Pulse Resp BP Pulse Ox 98.0 F 62 16 166/77 98 03/05/17 05:18 03/05/17 05:18 03/05/17 05:18 03/05/17 05:18 03/05/17 05:18 <Brianne Washington - Last Filed: 03/08/17 15:40> Medical Decision Making - Medical Decision Making 03/08/17 15:40 Pt signed out to the day team for further reevaluation. <Brianne Washington - Last Filed: 03/08/17 15:40> *DC/Admit/Observation/Transfer - Attestations Scribe Attestion: 03/05/17 07:06 Documentation prepared by Yuri Hill, acting as medical associate for Brianne Washington MD/DO. <Yuri Hill - Last Filed: 03/05/17 07:05> <Brianne Washington - Last Filed: 03/08/17 15:40> Diagnosis at time of Disposition: Hypertension - Discharge Dispostion Disposition: HOME Condition at time of disposition: Stable - Referrals Referrals: Lydia Landa MD [Primary Care Provider] - - Patient Instructions Printed Discharge Instructions: DI for High Blood Pressure, How to Monitor Your Blood Pressure at Home Additional Instructions: Follow-up with your primary care doctor within 1-2 days. Return to the emergency department if you have any new, worsening or concerning symptoms. Print Language: [place]
[2017-03-05 06:16] VITALS: TEMP 98; BMI 28.8
--- NOTE | 2017-03-05 09:38 | PDOC ---
*Physical Exam - Vital Signs Last Vital Signs Temp Pulse Resp BP Pulse Ox 98.0 F 60 18 159/78 99 03/05/17 05:18 03/05/17 07:30 03/05/17 07:30 03/05/17 07:30 03/05/17 07:30 Medical Decision Making - Medical Decision Making 03/05/17 09:43 Patient signed out to me by Dr. Washington, briefly patient presented to the emergency Department with asymptomatic hypertension. Chest x-ray and CT scan of the head were ordered and pending. Chest x-ray and CT had are unremarkable for acute pathology. CTH with possible acute vs chronic sinusitis although pt denies headache and has no fever/chills or sinus ttp, thus will not treat. Patient remains asymptomatic. Blood pressure elevated to 149 systolic this morning, discussed with patient and his son that they must follow up within 1-2 days with their PMD for better BP control. Patient advised to continue taking home medications and follow up with primary care doctor within 1-2 days. I discussed the physical exam findings, ancillary test results and final diagnoses with the patient. I answered all of the patient's questions. The patient was satisfied with the care received and felt comfortable with the discharge plan and treatment plan. The patient will call their primary care physician within 24 hours to arrange follow-up and will return to the Emergency Department with any new, persistent or worsening symptoms. *DC/Admit/Observation/Transfer Diagnosis at time of Disposition: Hypertension - Discharge Dispostion Disposition: HOME Condition at time of disposition: Stable Admit: No - Referrals Referrals: Lydia Landa MD [Primary Care Provider] - - Patient Instructions Printed Discharge Instructions: DI for High Blood Pressure, How to Monitor Your Blood Pressure at Home Additional Instructions: Follow-up with your primary care doctor within 1-2 days. Return to the emergency department if you have any new, worsening or concerning symptoms. Print Language: CZECH - Post Discharge Activity - Attestations Physician Attestion: 03/05/17 09:45 I, Dr. Kendall Rowell MD, attest that this document has been prepared under my direction and personally reviewed by me in its entirety. I further attest, that it accurately reflects all work, treatment, procedures and medical decision -making performed by me.
[2017-03-05 10:36] VITALS: BP 149/78; PULSE 66
--- NOTE | 2017-03-05 11:38 | EKG ---
Test Reason : Blood Pressure : / mmHG Vent. Rate : 052 BPM Atrial Rate : 052 BPM P-R Int : 170 ms QRS Dur : 096 ms QT Int : 442 ms P-R-T Axes : 056 -19 043 degrees QTc Int : 411 ms SINUS BRADYCARDIA POSSIBLE LEFT ATRIAL ENLARGEMENT BORDERLINE ECG WHEN COMPARED WITH ECG OF 05-JUN-2014 11:42, NONSPECIFIC T WAVE ABNORMALITY NO LONGER EVIDENT IN INFERIOR LEADS Confirmed by MD BLU, GINGER ([id number]) on 03/05/2017 11:38:02 AM Referred By: Confirmed By:GINGER HURT MD
== END 2017-03-05 10:37 | disposition home or self-care (01) ==
LOC: JER 05:08
DX: I10 Essential (primary) hypertension (principal)
CPT/HCPCS: 70450-TC; 71046-TC; 93005; 93010; 99282-25

== ENCOUNTER 2017-03-08 02:50 | Emergency (ER) | payer OTHER ==
[2017-03-08] MEDS ORDERED: ASPIRIN 81 MG CHEWABLE TABLETS PO ONE (02:59)
[2017-03-08 03:05] VITALS: TEMP 98.6; BMI 27.5
[2017-03-08] MEDS ORDERED: ASPIRIN 81 MG CHEWABLE TABLETS ONE (03:15)
--- NOTE | 2017-03-08 03:16 | PDOC ---
History of Present Illness - General Chief Complaint: Blood Pressure Problem Stated Complaint: CHEST PRESSURE Time Seen by Provider: 03/08/17 02:59 History Source: Patient - History of Present Illness Initial Comments: 03/08/17 03:15 81 year old male seen in the ED two days ago with hypertension, today patient c/ o hypertension, headache, difficulty sleeping, with dizziness denies chest pain , diaphoresis, fever/ chills, NVD, abdominal pain. Past History - Past Medical History Allergies/Adverse Reactions: Allergies Allergy/AdvReac Type Severity Reaction Status Date / Time No Known Allergies Allergy Verified 03/08/17 03:05 Home Medications: Ambulatory Orders Bisoprolol Fumarate 5 mg PO DAILY 03/05/17 Hydrochlorothiazide [Hctz -] 25 mg PO DAILY 03/05/17 Simvastatin 20 mg PO DAILY 03/05/17 Anemia: No Asthma: No Cancer: No Cardiac Disorders: Yes (ARRHYTHMIA ?) CVA: No COPD: No CHF: No Dementia: No Diabetes: No GI Disorders: No Disorders: No HTN: Yes Hypercholesterolemia: Yes Liver Disease: No Seizures: No Thyroid Disease: No - Immunization History Immunization Up to Date: Yes - Suicide/Smoking/Psychosocial Hx Smoking Status: No Smoking History: Never smoked Have you smoked in the past 12 months: No Number of Cigarettes Smoked Daily: 0 Hx Alcohol Use: No Drug/Substance Use Hx: No Substance Use Type: None Hx Substance Use Treatment: No *Physical Exam - Vital Signs Last Vital Signs Temp Pulse Resp BP Pulse Ox 98.6 F 86 20 175/75 95 03/08/17 03:03 03/08/17 03:03 03/08/17 03:03 03/08/17 03:03 03/08/17 03:03 - Physical Exam General Appearance: Yes: Appropriately Dressed Respiratory/Chest: positive: Lungs Clear, Normal Breath Sounds Cardiovascular: positive: Regular Rhythm, Regular Rate Gastrointestinal/Abdominal: positive: Normal Bowel Sounds, Soft Heart Score/ECG Review - ECG Intrepretation Comment:: 03/08/17 06:53 Sinus bradycardia: 57 bpm. possible left atrial enlargement ED Treatment Course - LABORATORY CBC & Chemistry Diagram: 03/08/17 03:20 03/08/17 03:20 - RADIOLOGY Radiology Studies Ordered: Category Date Time Status HEAD CT WITHOUT CONTRAST [CT] Stat CT Scan 03/08/17 03:13 Ordered CHEST X-RAY PORTABLE* [RAD] Stat Radiology 03/08/17 03:00 Ordered Medical Decision Making - Medical Decision Making 03/08/17 05:14 A: headache, hypertension P: reglan; benadryl cbc cmp cardiac enzymes *DC/Admit/Observation/Transfer Diagnosis at time of Disposition: Hypertension Qualifiers: Hypertension type: unspecified Qualified Code(s): I10 - Essential (primary) hypertension Headache Qualifiers: Headache type: tension-type Headache chronicity pattern: acute headache Intractability: not intractable Qualified Code(s): G44.209 - Tension-type headache, unspecified, not intractable - Discharge Dispostion Disposition: HOME Condition at time of disposition: Good - Referrals Referrals: Lydia Landa MD [Primary Care Provider] - - Patient Instructions Printed Discharge Instructions: DI for High Blood Pressure, How to Monitor Your Blood Pressure at Home Additional Instructions: follow up with your doctor as soon as possible. return to the ER if symptoms worsen. Print Language: MONGOLIAN - Post Discharge Activity
--- NOTE | 2017-03-08 03:26 | PDOC ---
*Physical Exam - Vital Signs Last Vital Signs Temp Pulse Resp BP Pulse Ox 98.6 F 86 20 175/75 95 03/08/17 03:03 03/08/17 03:03 03/08/17 03:03 03/08/17 03:03 03/08/17 03:03 ED Treatment Course - Medications Given in the ED: ED Medications Discontinued Medications Generic Name Dose Route Start Last Admin Trade Name Freq PRN Reason Stop Dose Admin Aspirin 162 mg 03/08/17 02:59 03/08/17 03:17 Asa - PO 03/08/17 03:00 162 mg ONCE ONE Administration *DC/Admit/Observation/Transfer - Referrals Referrals: Lydia Landa MD [Primary Care Provider] - - Patient Instructions - Post Discharge Activity
[2017-03-08 03:31] LABS: BASO % 0.4 % (0-2.0); HEMATOCRIT 48.1 % (35.4-49); HEMOGLOBIN 16.6 GM/dL (11.7-16.9); LYMPH % 32.3 % (8-40); MCH 32.9 pg (25.7-33.7); MCHC 34.6 g/dl (32.0-35.9); MEAN CELL VOLUME 95.2 fl (80-96); MEAN PLT VOLUME 8.1 fl (7.5-11.1); MONO % 9.9 % (3.8-10.2); NEUT % 53.4 % (42.8-82.8); PLATELET COUNT 171 K/MM3 (134-434); RBC 5.05 M/mm3 (4.00-5.60); RDW 11.9 % (11.9-15.9); WHITE BLOOD COUNT 5.4 K/mm3 (4.0-10.0)
[2017-03-08 03:43] LABS: INR 1.14 (0.82-1.09); PROTHROMBIN TIME (PATIENT) 12.9 SEC (9.98-11.88)
[2017-03-08 03:56] LABS: ALBUMIN 3.8 g/dl (3.4-5.0); ANION GAP 5 (8-16); BILIRUBIN,TOTAL 0.9 mg/dL (0.2-1.0); BLOOD UREA NITROGEN 16 mg/dL (7-18); CALCIUM 9.4 mg/dL (8.5-10.1); CHLORIDE 97 mmol/L (98-107); CO2 33 mmol/L (21-32); CREATININE 1.1 mg/dL (0.7-1.3); GLUCOSE,RANDOM 104 mg/dL (74-106); MAGNESIUM 1.9 mg/dL (1.8-2.4); SGOT/AST 12 U/L (15-37); SGPT/ALT 19 U/L (12-78); SODIUM 135 mmol/L (136-145); TOT PROT 7.9 g/dl (6.4-8.2)
[2017-03-08 03:57] VITALS: BP 166/76; PULSE 52
[2017-03-08] MEDS ORDERED: METOCLOPRAMIDE HCL INJECTION 10 MG/2 ML VIAL IVPB ONE (03:57)
[2017-03-08 03:58] LABS: ALK PHOS 58 U/L (45-117)
[2017-03-08] MEDS ORDERED: METOCLOPRAMIDE HCL INJECTION 10 MG/2 ML VIAL ONE (04:01)
--- NOTE | 2017-03-08 08:10 | EKG ---
Test Reason : Blood Pressure : / mmHG Vent. Rate : 057 BPM Atrial Rate : 057 BPM P-R Int : 164 ms QRS Dur : 094 ms QT Int : 424 ms P-R-T Axes : 061 -01 071 degrees QTc Int : 412 ms SINUS BRADYCARDIA POSSIBLE LEFT ATRIAL ENLARGEMENT BORDERLINE ECG WHEN COMPARED WITH ECG OF 05-MAR-2017 05:18, NO SIGNIFICANT CHANGE WAS FOUND Confirmed by SHELLY AVALOS, KELBY ([id number]) on 03/08/2017 8:10:33 AM Referred By: Confirmed By:KELBY BRAVO MD
== END 2017-03-08 05:30 | disposition home or self-care (01) ==
LOC: JER 02:50
DX: I10 Essential (primary) hypertension (principal); G44.209 Tension-type headache, unspecified, not intractable
CPT/HCPCS: 36415; 70450-TC; 71045-TC; 80053; 82550; 83735; 84484; 85025; 85610; 93005; 93010; 99283-25

== ENCOUNTER 2017-05-24 03:05 | Emergency (ER) | payer OTHER ==
[2017-05-24 03:25] VITALS: TEMP 98.4; BMI 27.3
--- NOTE | 2017-05-24 04:05 | PDOC ---
History of Present Illness - General Chief Complaint: Lightheaded Stated Complaint: PAIN Time Seen by Provider: 05/24/17 03:44 History Source: Patient Exam Limitations: Language Barrier (Jeb, the information tech, provided greenlandic translation) - History of Present Illness Initial Comments: CHIEF COMPLAINT: 81 y/o afebrile male with PMH HTN, HLD c/o high blood pressure with headache today. HISTORY OF PRESENT ILLNESS: The patient states he stated having a headache last night and noticed his blood pressure was high. He took an extra blood pressure pill last night at 10:30 and has been feeling better ever since but wanted to come in to be checked out anyway. He states his headache is almost completely resolved. He states when he checked his BP last night at home it was 189/110. He denies f/c, changes in vision, n/v/d, CP, SOB, hemoptysis, abd pain, facial drooping, slurred speech and all other symptoms. Vital signs on arrival are within normal limits. REVIEW OF SYSTEMS: GENERAL/CONSTITUTIONAL: +high blood pressure. No fever/chills. No weakness. No weight change. HEAD, EYES, EARS, NOSE AND THROAT: No change in vision. No ear pain or discharge. No sore throat. CARDIOVASCULAR: No chest pain or shortness of breath. RESPIRATORY: No cough, wheezing, or hemoptysis. GASTROINTESTINAL: No abd pain, nausea, vomiting, diarrhea. GENITOURINARY: No dysuria, frequency, or change in urination. MUSCULOSKELETAL: No joint or muscle swelling or pain. No neck or back pain. SKIN: No rash or easy bruising. NEUROLOGIC: +headache - resolved. No vertigo, loss of consciousness, or loss of sensation. PHYSICAL EXAM: GENERAL: The patient is awake, alert, and fully oriented, in no acute distress. He is well appearing. HEAD: Normal with no signs of trauma. ENT: Pupils equal, round and reactive to light, extraocular movements intact, sclera anicteric, conjunctiva clear. Neck supple. LUNGS: Clear to auscultation bilaterally. Normal excursion. No respiratory distress or use of accessory muscles. CV: RRR, S1/S2, no MRG. Cap refill < 2 sec. ABDOMEN: Soft, non-distended, non-tender even to deep palpation, no hepatomegaly or splenomegaly, no masses. EXTREMITIES: Normal range of motion, no edema. NEUROLOGICAL: Normal speech, normal gait. CN II-XII grossly intact. No slurred speech. No facial drooping. Normal finger to nose. PSYCH: Normal mood, normal affect. SKIN: Warm, dry, normal turgor, no rashes or lesions noted. Past History - Past Medical History Allergies/Adverse Reactions: Allergies Allergy/AdvReac Type Severity Reaction Status Date / Time No Known Allergies Allergy Verified 05/24/17 03:20 Home Medications: Ambulatory Orders Bisoprolol Fumarate 5 mg PO DAILY 03/05/17 Hydrochlorothiazide [Hctz -] 25 mg PO DAILY 03/05/17 Simvastatin 20 mg PO DAILY 03/05/17 Anemia: No Asthma: No Cancer: No Cardiac Disorders: Yes (ARRHYTHMIA ?) CVA: No COPD: No CHF: No Dementia: No Diabetes: No GI Disorders: No Disorders: No HTN: Yes Hypercholesterolemia: Yes Liver Disease: No Seizures: No Thyroid Disease: No - Immunization History Immunization Up to Date: Yes - Suicide/Smoking/Psychosocial Hx Smoking Status: No Smoking History: Never smoked Have you smoked in the past 12 months: No Number of Cigarettes Smoked Daily: 0 Information on smoking cessation initiated: No Hx Alcohol Use: No Drug/Substance Use Hx: No Substance Use Type: None Hx Substance Use Treatment: No *Physical Exam - Vital Signs Last Vital Signs Temp Pulse Resp BP Pulse Ox 98.4 F 58 L 18 161/78 99 05/24/17 03:21 05/24/17 03:21 05/24/17 03:21 05/24/17 03:21 05/24/17 03:21 Medical Decision Making - Medical Decision Making A/P: 81 y/o male with headache and hypertension last night that has resolved after taking an extra blood pressure pill. Normal physical exam. BP now 133/ 71. Patient instructed to call his doctor in the morning to schedule a follow up appointment for possible blood pressure medication increase and return to the ER immediately with any worsening or concerning symptoms. The patient verbalizes understanding of all instructions, has no further questions and is awaiting discharge. *DC/Admit/Observation/Transfer Diagnosis at time of Disposition: Hypertension Qualifiers: Hypertension type: unspecified Qualified Code(s): I10 - Essential (primary) hypertension - Discharge Dispostion Disposition: HOME Condition at time of disposition: Improved - Referrals Referrals: Lydia Landa MD [Primary Care Provider] - Call tomorrow (Call Today) - Patient Instructions Printed Discharge Instructions: DI for High Blood Pressure Additional Instructions: Discharge Instructions: -Continue taking your blood pressure medication as prescribed -Call your doctor this morning to schedule a follow up appointment -Return to the ER with any worsening or concerning symptoms. - Post Discharge Activity
[2017-05-24 04:09] VITALS: BP 133/71; PULSE 89
== END 2017-05-24 04:12 | disposition home or self-care (01) ==
LOC: JER 03:05
DX: I10 Essential (primary) hypertension (principal); E78.00 Pure hypercholesterolemia, unspecified
CPT/HCPCS: 99281-25

== ENCOUNTER 2018-01-27 00:27 | Observation (INO) | payer OTHER ==
--- NOTE | 2018-01-27 01:03 | PDOC ---
Attending Attestation - HPI HPI: 01/27/18 02:20 The patient is a 82 year old male, with a significant PMH of hypertension, hyperlipidemia, constipation, who presents to the emergency department with right flank pain radiating to his right ankle beginning 1 day ago. The patient states the right flank pain is a stabbing pain, constant, rated 9/10 in intensity, with no exacerbating or alleviating factors. The patient reports the right flank pain has been progressively worsening and he is now having difficulty ambulating which prompted the ED visit. Denies any recent injuries or trauma. The patient denies chest pain, shortness of breath, headache and dizziness. Denies fever, chills, nausea, vomit, diarrhea and constipation. Denies dysuria, frequency, urgency and hematuria. Allergies: NKA Documentation prepared by Giorgio Walton, acting as medical sociologist for Brianne Washington MD. - Physicial Exam PE: 01/27/18 02:20 GENERAL: (+) Mild painful distress. Awake, alert, and fully oriented. HEAD: No signs of trauma EYES: PERRLA, EOMI, sclera anicteric, conjunctiva clear ENT: Auricles normal inspection, hearing grossly normal, nares patent, oropharynx clear without exudates. Moist mucosa NECK: Normal ROM, supple, no lymphadenopathy, JVD, or masses LUNGS: Breath sounds equal, clear to auscultation bilaterally. No wheezes, and no crackles HEART: (+) Bradycardia with regular rhythm. normal S1 and S2, no murmurs, rubs or gallops BACK: (+) CVA tenderness on the right side consistent with an arterial blood clot. ABDOMEN: Soft, nontender, normoactive bowel sounds. No guarding, no rebound. No masses EXTREMITIES: (+) Right lower extremity is shiny and cool to touch from the right flank extending all the way down. NEUROLOGICAL: Cranial nerves II through XII grossly intact. Normal speech SKIN: Warm, Dry, normal turgor, no rashes or lesions noted. <Giorgio Walton - Last Filed: 01/27/18 02:20> - Resident Resident Name: Laly Loja - ED Attending Attestation I have performed the following: I have examined & evaluated the patient, The case was reviewed & discussed with the resident, I agree w/resident's findings & plan - Medical Decision Making 01/27/18 01:40 Pt has cold flank on the right as well as entire right leg cold and decreased pulses. Pt was sent for official duplex to evaluate for pulses. Pt will also have CTA abdominal aorta with runoff. We paged Dr[facility] Vick[facility] no response. 01/27/18 02:06 Patient Name: EDVIN JOHNSON THIS IS A PRELIMINARY REPORT FROM [facility] DATE OF SERVICE: 2018-01-27 01:39:09 IMAGES: 40 EXAM: us DUPLEX VASCULAR US-2 LEGS HISTORY: Concern for deep vein thrombosis COMPARISON: None. FINDINGS: Ultrasound of bilateral lower extremity veins demonstrates normal compression flow and augmentation IMPRESSION: No deep vein thrombosis 01/27/18 02:17 Pt's left flank and left leg are cold; unclear if this is an arterual clot or a dissection. 01/27/18 03:08 D-Dimer is 505; labs otherwise normal. CTA pending. 01/27/18 03:29 Patient Name: EDVIN JOHNSON THIS IS A PRELIMINARY REPORT FROM [facility] DATE OF SERVICE: 2018-01-27 02:16:02 IMAGES: [id number] EXAM: CT ABDOMEN AND PELVIS CTA AOR \T\ BLE RUNOFF HISTORY: Cold right leg COMPARISON: None. FINDINGS: Abdomen Liver: Normal Spleen: Normal Pancreas: Normal CONFIDENTIALITY NOTICE: This information is intended only for the use of the recipient(s) named above. If you are not the intended recipient, or a person responsible for delivering it to the intended recipient, you are hereby notified that any disclosure, copying, distribution or use of any of the information contained in or attached to this transmission is STRICTLY PROHIBITED. If you have received this transmission in error, please immediately notify [facility] Airline Pilot Flight Instructor and destroy the original transmission and its attachments without saving them in any manner [address] [facility] [address] [place] [address] Phone: [phone] ([phone]) Fax: Email: [email or web address] Patient Information: : 1935 Order Type: Preliminary Name: ELIZABETH PARDO Sex: M Study Description: CT CTA LOWER EXTREMITY Modality: CT Location: [facility] Referring Physician: KRISTEN MERCEDES Gallbladder: Normal Stomach: Normal Small bowel: Normal Large bowel: Normal Appendix: Normal Adrenals:Normal Kidneys: There are bilateral renal cysts Vascular: Abdominal aorta is normal in caliber with no aneurysm or dissection. There are mild atherosclerotic changes. Mesenteric vessels and renal arteries enhance normally Lymphatic: Normal Peritoneal: No free peritoneal air or fluid Pelvis: Prostate: Prostate is moderately enlarged measuring 6.0 x 5.0 cm There are bilateral scrotal hydroceles Rectum: Normal Bladder: There is some bladder wall thickening The inferior thorax: Normal General: Skeletal: Normal Abdominal wall: Normal Lower extremities: There are mild atherosclerotic changes in the right external iliac artery and common femoral artery without aneurysm dissection stenosis or occlusion. The superficial femoral artery, popliteal artery, anterior tibial artery, posterior tibial artery, and peroneal arteries enhance normally without aneurysm dissection or occlusion. Posterior tibial artery traverses the ankle to perfuse the plantar foot. The anterior tibial artery traverses the ankle to perfuse the dorsal foot. On the left, there are mild atherosclerotic changes with normal enhancement in the external iliac artery, common femoral artery, superficial femoral artery, popliteal artery, posterior tibial artery, peroneal artery and the proximal anterior tibial artery. There are atherosclerotic changes in the mid anterior tibial artery with some segmental reconstitution. Anterior tibial artery is not visualized traversing the ankle. 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 No right-sided vascular occlusion One or more of the following dose reduction techniques were used: automated exposure control, adjustment of the mA and/or kV according to patient size, use of iterative reconstructive technique. THIS DOCUMENT HAS BEEN ELECTRONICALLY SIGNED 01/27/18 03:41 Pt will be admitted to the hospitalists; he may require MRI in the AM; he will also require neuro consult. 01/27/18 03:41 Pt's PMD is jesus crowell; she admits to the hospitalists. UA pending 01/27/18 04:[address] Vick again; hospitalist wants them on board before admitting the patient. 01/27/18 07:56 Dr Vick called back and is aware of the patient. He will consult, though this seems to be more of a neurological issue than a vascular issue. <Brianne Washington - Last Filed: 01/27/18 19:57>
--- NOTE | 2018-01-27 01:37 | PDOC ---
History of Present Illness <Brianne Washington - Last Filed: 01/27/18 03:53> - General History Source: Patient, Significant Other Exam Limitations: Language Barrier - History of Present Illness Initial Comments: 01/27/18 01:40 Patient is an 82 year old male with a PMHx of HTN, HLD, constipation who presents to the ED complaining of right flank pain radiating all the way to his right ankle that started on (01/25/19). Patient describes the pain as a "stabbing-like", constant pain radiating from the right flank to the right ankle with a pain severity of 9/10. There are no alleviating or exacerbating factors. Patient reports the pain progressively worsened in the last few hours and is now having difficulty ambulating, which prompted this hospital visit. Patient denies any trauma, injury, or fall Patient denies having similar experience in the past Patient otherwise denies any chest pain, palpitations, shortness of breath, fever, chills, nausea, vomiting, abdominal pain, headaches, dizziness, loss of consciousness, urinary or bladder symptoms, hematuria, hematochezia, hematemesis , melena, acute vision changes PMHx: HTN HLD Constipation PSHx: Denies Social Hx: Denies alcohol use Denies drug use Denies smoking Used to work as a Tailor Lives with At baseline ambulates independently Family Hx: Denies Allergies: NKDA <Laly Loja - Last Filed: 01/27/18 04:58> - General Chief Complaint: Pain, Acute Stated Complaint: R LEG PAIN Time Seen by Provider: 01/27/18 01:01 Past History <Brianne Washington - Last Filed: 01/27/18 03:53> - Past Medical History Anemia: No Asthma: No Cancer: No Cardiac Disorders: Yes (ARRHYTHMIA ?) CVA: No COPD: No CHF: No Dementia: No Diabetes: No GI Disorders: No Disorders: No HTN: Yes Hypercholesterolemia: Yes Liver Disease: No Seizures: No Thyroid Disease: No - Immunization History Immunization Up to Date: Yes - Suicide/Smoking/Psychosocial Hx Smoking Status: No Smoking History: Never smoked Have you smoked in the past 12 months: No Number of Cigarettes Smoked Daily: 0 Information on smoking cessation initiated: No Hx Alcohol Use: No Drug/Substance Use Hx: No Substance Use Type: None Hx Substance Use Treatment: No <Laly Loja - Last Filed: 01/27/18 04:58> - Past Medical History Allergies/Adverse Reactions: Allergies Allergy/AdvReac Type Severity Reaction Status Date / Time No Known Allergies Allergy Verified 01/27/18 01:15 Home Medications: Ambulatory Orders Bisoprolol Fumarate 5 mg PO DAILY 03/05/17 Hydrochlorothiazide [Hctz -] 25 mg PO DAILY 03/05/17 Simvastatin 20 mg PO DAILY 03/05/17 Docusate Sodium [Colace] 100 mg PO DAILY 01/27/18 Review of Systems - Review of Systems Able to Perform ROS?: Yes Is the patient limited Croatian proficient: Yes Constitutional: No: Chills, Diaphoresis, Fever, Malaise, Night Sweats HEENTM: No: Blurred Vision, Nose Congestion, Throat Pain, Throat Swelling Respiratory: No: Cough, Orthopnea, Shortness of Breath, SOB with Exertion, SOB at Rest, Stridor, Wheezing, Productive cough, Hemoptysis Cardiac (ROS): No: Chest Pain, Edema, Irregular Heart Rate, Lightheadedness, Palpitations, Syncope, Chest Tightness ABD/GI: No: Abdominal Distended, Diarrhea, Rectal Bleeding, Vomiting : Yes: Flank Pain (Right ). No: Burning, Dysuria, Discharge, Frequency Musculoskeletal: No: Joint Pain, Joint Swelling, Muscle Pain, Muscle Weakness Integumentary: No: Bruising, Erythema, Pruritus, Rash Neurological: No: Headache, Numbness, Paresthesia, Tremors, Weakness, Unsteady Gait Psychiatric: No: Anxiety, Depression Hematologic/Lymphatic: No: Anemia, Blood Clots <Laly Loja - Last Filed: 01/27/18 04:58> *Physical Exam - Vital Signs Last Vital Signs Temp Pulse Resp BP Pulse Ox 98.4 F 51 L 20 155/59 L 97 01/27/18 00:44 01/27/18 02:06 01/27/18 02:06 01/27/18 02:06 01/27/18 00:44 <Brianne Washington - Last Filed: 01/27/18 03:53> - Vital Signs Last Vital Signs Temp Pulse Resp BP Pulse Ox 98.4 F 54 L 18 129/53 L 97 01/27/18 00:44 01/27/18 00:44 01/27/18 00:44 01/27/18 00:44 01/27/18 00:44 - Physical Exam General Appearance: Yes: Other (Awake, alert, oriented x3, in mild painful distress ) HEENT: positive: EOMI, ANDRE, Normal Voice, Pharynx Normal. negative: Tonsillar Exudate, Tonsillar Erythema, Rhinorrhea, Sinus Tenderness Neck: positive: Supple. negative: Decreased range of motion Respiratory/Chest: positive: Lungs Clear, Normal Breath Sounds. negative: Chest Tender, Crackles, Rales, Rhonchi, Stridor, Wheezing Cardiovascular: positive: Regular Rhythm, S1, S2, Bradycardia. negative: Edema , JVD Vascular Pulses: Carotid (R): 2+, Carotid (L): 2+, Dorsalis-Pedis (R): 1+, Doralis-Pedis (L): 2+ (on doppler ) Gastrointestinal/Abdominal: positive: Other (Soft, nontender, nondistended, normoactive bowel sounds, no organomegaly ) Musculoskeletal: positive: CVA Tenderness (R), Decreased Range of Motion Extremity: positive: Tender (Right LE ), Coldness (Right LE), Pedal Edema ( bilateral LE ). negative: Calf Tenderness Integumentary: positive: Cold (Right LE ) Neurologic: positive: dental appliance fixer II-XII NML intact, Fully Oriented, Alert, Normal Mood/ Affect, Normal Response, Motor Strength 5/5 <Laly Loja - Last Filed: 01/27/18 04:58> Moderate Sedation - Procedure Monitoring Vital Signs: Procedure Monitoring Vital Signs Temperature 98.4 F 01/27/18 00:44 Pulse Rate 51 L 01/27/18 02:06 Respiratory Rate 20 01/27/18 02:06 Blood Pressure 155/59 L 01/27/18 02:06 O2 Sat by Pulse Oximetry (%) 97 01/27/18 00:44 <Brianne Washington - Last Filed: 01/27/18 03:53> - Procedure Monitoring Vital Signs: Procedure Monitoring Vital Signs Temperature 98.4 F 01/27/18 00:44 Pulse Rate 54 L 01/27/18 00:44 Respiratory Rate 18 01/27/18 00:44 Blood Pressure 129/53 L 01/27/18 00:44 O2 Sat by Pulse Oximetry (%) 97 01/27/18 00:44 <Laly Loja - Last Filed: 01/27/18 04:58> ED Treatment Course - LABORATORY CBC & Chemistry Diagram: 01/27/18 02:01 01/27/18 02:01 - ADDITIONAL ORDERS Additional order review: Laboratory Results 01/27/18 01/27/18 01/27/18 03:10 02:01 02:01 PT with INR INR PTT (Actin FS) D-Dimer 505 H Sodium 136 Potassium 4.6 Chloride 100 Carbon Dioxide 28 Anion Gap 8 BUN 17 Creatinine 1.2 Creat Clearance w eGFR 57.82 Random Glucose 99 Calcium 9.3 Phosphorus 3.5 Magnesium 2.1 Total Bilirubin 1.1 H AST 29 ALT 20 Alkaline Phosphatase 60 Creatine Kinase 387 H Troponin I < 0.02 Total Protein 7.5 Albumin 3.6 Urine Color Ltyellow Urine Appearance Clear Urine pH 6.0 Ur Specific [place] 1.011 Urine Protein Negative Urine Glucose (UA) Negative Urine Ketones Negative Urine Blood Negative Urine Nitrite Negative Urine Bilirubin Negative Urine Urobilinogen Negative Ur Leukocyte Esterase Negative 01/27/18 02:01 PT with INR 13.00 INR 1.10 H PTT (Actin FS) 28.7 D-Dimer Sodium Potassium Chloride Carbon Dioxide Anion Gap BUN Creatinine Creat Clearance w eGFR Random Glucose Calcium Phosphorus Magnesium Total Bilirubin AST ALT Alkaline Phosphatase Creatine Kinase Troponin I Total Protein Albumin Urine Color Urine Appearance Urine pH Ur Specific [place] Urine Protein Urine Glucose (UA) Urine Ketones Urine Blood Urine Nitrite Urine Bilirubin Urine Urobilinogen Ur Leukocyte Esterase 01/27/18 02:01 RBC 4.57 MCV 95.2 MCHC 36.1 H RDW 11.8 L MPV 8.1 Neutrophils % 52.5 Lymphocytes % 34.3 Monocytes % 10.1 Eosinophils % 2.2 Basophils % 0.9 - RADIOLOGY Radiology Studies Ordered: Category Date Time Status ABDOMEN CTA AOR & BLE RUNOFF [CT] Stat CT Scan 01/27/18 01:37 Taken <Brianne Washington - Last Filed: 01/27/18 03:53> - LABORATORY CBC & Chemistry Diagram: 01/27/18 02:01 01/27/18 02:01 - RADIOLOGY Radiology Studies Ordered: Category Date Time Status CHEST X-RAY PORTABLE* [RAD] Stat Radiology 01/27/18 01:35 Ordered DUPLEX VASCUL US-2LEGS [US] Stat Ultrasound 01/27/18 01:35 Ordered <Laly Loja - Last Filed: 01/27/18 04:58> Medical Decision Making - Medical Decision Making 01/27/18 02:14 Patient is an 82 year old male with a PMHx of HTN, HLD, Constipation who presented for right flank pain radiating to the right ankle. Patient was found to have a cold and shiny right LE with barely palpable pulses. Patient's risk factors include HTN, HLD and overweight, concerning for acute limb ischemia. 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 No right-sided vascular occlusion One or more of the following dose reduction techniques were used: automated exposure control, adjustment of the mA and/or kV according to patient size, use of iterative reconstructive technique. -U/A pending -Will likely require admission 01/27/18 04:51 -Call made out to vascular surgeon 01/27/18 04:58 -Patient admitted to [facility] <Laly Loja - Last Filed: 01/27/18 04:58> *DC/Admit/Observation/Transfer - Discharge Dispostion Decision to Admit order: Yes <Brianne Washington - Last Filed: 01/27/18 03:53> <Laly Loja - Last Filed: 01/27/18 04:58> Diagnosis at time of Disposition: Paresthesia and pain of right extremity, Sensation of cold in lower extremity, Difficulty in walking, Pain aggravated by walking Diagnosis at time of Disposition: (Ruled Out): Increased weakness when ambulating - Referrals Referrals: Lydia Landa MD [Primary Care Provider] - - Patient Instructions - Post Discharge Activity
[2018-01-27 02:22] LABS: BASO % 0.9 % (0-2.0); EOS % 2.2 % (0-4.5); HEMATOCRIT 43.5 % (35.4-49); HEMOGLOBIN 15.7 GM/dL (11.7-16.9); LYMPH % 34.3 % (8-40); MCH 34.3 pg (25.7-33.7); MCHC 36.1 g/dl (32.0-35.9); MEAN CELL VOLUME 95.2 fl (80-96); MEAN PLT VOLUME 8.1 fl (7.5-11.1); MONO % 10.1 % (3.8-10.2); NEUT % 52.5 % (42.8-82.8); PLATELET COUNT 176 K/MM3 (134-434); RBC 4.57 M/mm3 (4.00-5.60); RDW 11.8 % (11.9-15.9)
[2018-01-27 02:28] LABS: INR 1.1 (0.83-1.09)
[2018-01-27 02:31] LABS: ACTIVATED PTT 28.7 SECONDS (25.2-36.5)
[2018-01-27 02:55] LABS: ALBUMIN 3.6 g/dl (3.4-5.0); ALK PHOS 60 U/L (45-117); ANION GAP 8 MMOL/L (8-16); BILIRUBIN,TOTAL 1.1 mg/dL (0.2-1); BLOOD UREA NITROGEN 17 mg/dL (7-18); CALCIUM 9.3 mg/dL (8.5-10.1); CHLORIDE 100 mmol/L (98-107); CO2 28 mmol/L (21-32); CREATININE 1.2 mg/dL (0.55-1.3); GLUCOSE,RANDOM 99 mg/dL (74-106); MAGNESIUM 2.1 mg/dL (1.8-2.4); PHOSPHOROUS 3.5 mg/dL (2.5-4.9); POTASSIUM 4.6 mmol/L (3.5-5.1); SGOT/AST 29 U/L (15-37); SGPT/ALT 20 U/L (13-61); SODIUM 136 mmol/L (136-145); TOT PROT 7.5 g/dl (6.4-8.2)
[2018-01-27 03:30] LABS: URINE APPEARANCE CLEAR; URINE BILIRUBIN NEGATIVE (<2.0 mg/dL); URINE COLOR LTYELLOW; URINE GLUCOSE (UA) NEGATIVE (NEGATIVE); URINE KETONE NEGATIVE (NEGATIVE); URINE LEUK ESTERASE NEGATIVE (NEGATIVE); URINE NITRITE NEGATIVE (NEGATIVE); URINE PROTEIN NEGATIVE (NEGATIVE); URINE UROBILINOGEN NEGATIVE mg/dL (0.2-1.0)
--- NOTE | 2018-01-27 05:03 | PN ---
Teaching Attending Note Name of Resident: Roberta Melgoza ATTENDING PHYSICIAN STATEMENT I saw and evaluated the patient. I reviewed the resident's note and discussed the case with the resident. I agree with the resident's findings and plan as documented. SUBJECTIVE: Patient is an 82 year old man with a PMH of HTN, HLD and constipation who presents to the ER complaining of right buttock pain radiating all the way to his right ankle that started on (01/25/19). Patient describes the pain as a "stabbing-like", constant pain radiating from the right flank to the right ankle with a pain severity of 9/10. There are no alleviating or exacerbating factors. Patient reports the pain progressively worsened in the last few hours and is now having difficulty ambulating. Patient denies any trauma, injury, fall or having similar experience in the past. No associated chest pain, palpitations, shortness of breath, fever, chills, nausea, vomiting, diarrhea, urinary or bladder symptoms. OBJECTIVE: Alert Vital Signs Period Temp Pulse Resp BP Sys/Cardoza Pulse Ox Last 24 Hr 98.4 F 51-54 18-20 129-155/53-59 97 HEENT: No Jaundice, eye redness or discharge, PERRLA, EOMI. Normocephalic, atraumatic. External ears are normal and hearing is grossly intact. No nasal discharge. Neck: Supple, nontender. No palpable adenopathy or thyromegaly. No JVD Chest: Good effort. Clear to auscultation and percussion. Heart: Regular. No S3, rub or murmur Abdomen: Not distended, soft, nontender and no HSM. No rebound or guarding. Normoactive bowel sounds. Ext: Tender right buttock and thigh. No limited ROM in right hip. Smooth shinny skin on right leg. Dorsalis pedis pulses intact. Discoloration of left lower leg area. No leg edema. Skin: Warm and dry. No petechiae, rash or ecchymosis. Neuro: Alert. Oriented x3. CN 2-12 grossly intact. Sensation grossly intact in all four extremities and DTR are symmetric. Home Medications Medication Instructions Recorded Bisoprolol Fumarate 5 mg PO DAILY 03/05/17 Hydrochlorothiazide [Hctz -] 25 mg PO DAILY 03/05/17 Simvastatin 20 mg PO DAILY 03/05/17 Docusate Sodium [Colace] 100 mg PO DAILY 01/27/18 Abnormal Lab Results 01/27/18 01/27/18 01/27/18 02:01 02:01 02:01 MCH 34.3 H MCHC 36.1 H RDW 11.8 L INR 1.10 H D-Dimer Total Bilirubin 1.1 H Creatine Kinase 387 H CK-MB (CK-2) 10.0 H 01/27/18 02:01 MCH MCHC RDW INR D-Dimer 505 H Total Bilirubin Creatine Kinase CK-MB (CK-2) ASSESSMENT AND PLAN: 1. 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 He has no pain on the left side. Findings consistent with either rhabdomyolysis/myopathy associated with simvastatin therapy. Will hydrate him, trend CPK and stop simvastatin. Consult PT. If symptoms persist, will get MRI of the right hip/buttock and thigh. Consult vascular surgery for incidental finding of left tibial artery occlusion. No left leg pain, so no indication for IV heparin at this time. Restart home antihypertensive drugs to ultimately attain normotension - reduce HCTZ to 12.5 mg qd and add amlodipine 5 mg po qd. Nonpharmacologic measures to control hypertension like weight loss, salt restriction and exercise discussed. 2. DVT prophylaxis - Lovenox 40 mg SQ q 24 hours. 3. Advance directives - Full code
--- NOTE | 2018-01-27 05:36 | HP ---
CHIEF COMPLAINT: R buttock pain radiating down R leg PCP: Dr. Rinaldi HISTORY OF PRESENT ILLNESS: 82 Singaporean-speaking male w/ pmhx of HTN, HLD, constipation who presents with R buttock pain radiating to the R anterior guillory. Pt states the pain started on - pain is stabbing in nature, and constant. It was 9/10 prior to arrival in the hospital, but is now 4/10. He admits to difficulty ambulating due to the pain. Pt states he applied Harpreet vaporub to affected area with no relief. He denies trauma or injury to the area, hx of falls, weakness, numbness/ tingling in his b/l legs. He normally walked with cane. Denies chest pain, sob, markham/d, n/v, kidney stones, fam hx of kidney stones, back problems, urinary/bowel symptoms, c/d, blood in urine and stool. ER course was notable for: (1) U/A neg, afebrile, CTA showed atherosclerotic changes and segmental occlusion of L anterior tibial artery that does not correspond to history. No R vascular occlusion. Duplex was neg for DVT. (2) Vascular surg consult ordered (3) Recent Travel: Denies recent travel PAST MEDICAL HISTORY: HTN HLD constipation PAST SURGICAL HISTORY: Denies Social History: Smoking: Denies Alcohol: Denies Drugs: Denies Family History: Denies Allergies No Known Allergies Allergy (Verified 01/27/18 01:15) HOME MEDICATIONS: Home Medications Medication Instructions Recorded Bisoprolol Fumarate 5 mg PO DAILY 03/05/17 Hydrochlorothiazide [Hctz -] 25 mg PO DAILY 03/05/17 Simvastatin 20 mg PO DAILY 03/05/17 Docusate Sodium [Colace] 100 mg PO DAILY 01/27/18 REVIEW OF SYSTEMS CONSTITUTIONAL: Denies f/c, generalized weakness, malaise, loss of appetite HEENT: Denies rhinorrhea, nasal congestion, throat pain, throat swelling, difficulty swallowing, mouth swelling, ear pain, eye pain, visual changes CARDIOVASCULAR: Denies cp, syncope, palpitations, lightheadedness, peripheral edema RESPIRATORY: Denies cough, sob, barcenas, orthopnea, wheezing GASTROINTESTINAL: Denies abd pain, abd distension, n/v, c/d, GENITOURINARY: Denies dysuria, frequency, urgency, hesitancy, hematuria, flank pain MUSCULOSKELETAL: Denies myalgia, joint swelling, back pain, neck pain SKIN: Denies rash, itching NEUROLOGIC: Denies headache, focal weakness or paresthesias, dizziness, bladder or bowel incontinence PHYSICAL EXAMINATION Vital Signs - 24 hr 01/27/18 01/27/18 00:44 02:06 Temperature 98.4 F Pulse Rate 54 L Pulse Rate [ 51 L Right Radial] Respiratory 18 20 Rate Blood Pressure 129/53 L Blood Pressure 155/59 L [Right] O2 Sat by Pulse 97 Oximetry (%) GENERAL: AAOx3. NAD. Comfortable. Singaporean-speaking. HEENT: AT/NC. EOMI. ANDRE. Moist mucus membranes. NECK: Normal range of motion, supple without lymphadenopathy, JVD, or masses. LUNGS: CTA B/L. No wheezes noted. HEART: RRR. Normal S1, S2. No murmurs noted. ABDOMEN: Soft, NT/ND. +BS in all 4Qs. No masses or bruits. MUSCULOSKELETAL: Normal range of motion at all joints. No bony deformities or tenderness. No CVA tenderness. UPPER EXTREMITIES: 2+ pulses, warm, well-perfused. No cyanosis. No clubbing. No peripheral edema. L LOWER EXTREMITIES: 2+ pulses, warm, well-perfused. No calf tenderness. No peripheral edema. Shiny skin noted on R lower leg. Dark discoloration noted on L foot and ankle area. NEUROLOGICAL: Cranial nerves II-XII intact. Normal speech. PSYCHIATRIC: Cooperative. Good eye contact. Appropriate mood and affect. SKIN: Warm, dry, normal turgor, no rashes or lesions noted, normal capillary refill. CBCD WBC 6.0 K/mm3 (4.0-10.0) 01/27/18 02:01 RBC 4.57 M/mm3 (4.00-5.60) 01/27/18 02:01 Hgb 15.7 GM/dL (11.7-16.9) 01/27/18 02:01 Hct 43.5 % (35.4-49) 01/27/18 02:01 MCV 95.2 fl (80-96) 01/27/18 02:01 MCHC 36.1 g/dl (32.0-35.9) H 01/27/18 02:01 RDW 11.8 % (11.9-15.9) L 01/27/18 02:01 Plt Count 176 K/MM3 (134-434) 01/27/18 02:01 MPV 8.1 fl (7.5-11.1) 01/27/18 02:01 CMP Sodium 136 mmol/L (136-145) 01/27/18 02:01 Potassium 4.6 mmol/L (3.5-5.1) 01/27/18 02:01 Chloride 100 mmol/L (98-107) 01/27/18 02:01 Carbon Dioxide 28 mmol/L (21-32) 01/27/18 02:01 Anion Gap 8 MMOL/L (8-16) 01/27/18 02:01 BUN 17 mg/dL (7-18) 01/27/18 02:01 Creatinine 1.2 mg/dL (0.55-1.3) 01/27/18 02:01 Creat Clearance w eGFR 57.82 (>60) 01/27/18 02:01 Calcium 9.3 mg/dL (8.5-10.1) 01/27/18 02:01 Total Bilirubin 1.1 mg/dL (0.2-1) H 01/27/18 02:01 AST 29 U/L (15-37) 01/27/18 02:01 ALT 20 U/L (13-61) 01/27/18 02:01 Alkaline Phosphatase 60 U/L (45-117) 01/27/18 02:01 Total Protein 7.5 g/dl (6.4-8.2) 01/27/18 02:01 Albumin 3.6 g/dl (3.4-5.0) 01/27/18 02:01 CONSULTS: Vasc surg- Dr. Vick IMAGING: * Abdomen CTA: Atherosclerotic changes and segmental occlusion of L anterior tibial a., doesn't correspond to hx. No R vascular occlusion. * Duplex: No evidence of DVT. ASSESSMENT/PLAN: 82 Singaporean-speaking male w/ pmhx of HTN, HLD, constipation who presents with R buttock pain radiating to the R anterior guillory. #R buttock and thigh pain; ddx includes myopathy 2/2 statin use vs. muscle overuse -Abdomen CTA noted above; Since there is no L leg pain, no need for IV heparin at this time. -Vasc surg consult ordered; await recs -Pain currently controlled. -PT consult -trend CPK, currently 387 -MRI of R hip/buttock #HTN -Sodium-controlled diet -weight loss, exercise encouraged Cont home meds: -HCTZ 25 mg PD -Bisoprolol fumarate 5 mg PO QD #HLD -hold home meds, Simvastatin #Constipation Cont home med: -Colace 100 mg PO QD #Prophylaxis DVT: Lovenox 40 mg SQ QD #FEN -NS @ 100 -recheck lytes in AM -cholesterol/sodium controlled diet dispo -admit to obs Visit type - Emergency Visit Emergency Visit: Yes ED Registration Date: 01/27/18 Care time: The patient presented to the Emergency Department on the above date and was hospitalized for further evaluation of their emergent condition. - New Patient This patient is new to me today: Yes Date on this admission: 01/27/18 - Critical Care Critical Care patient: No
[2018-01-27] MEDS: SODIUM CHLORIDE 1,000 ML IV SCH (06:00)
--- NOTE | 2018-01-27 09:01 | PN ---
Progress Note (short form) - Note Progress Note: NEUROSURGERY CONSULT DICTATED Chart reviewed History obtained Pt examined H/o HTN, HLD c/o 3 days h/o right hip radiating to anterior thigh, knee, and guillory. Pain 9/10. No alleviating or exacerbating factors. Patient reported pain progressively worsened yesterday and had difficulty ambulating. Patient denies any trauma, injury, fall or having similar experience. No associated chest pain, palpitations, shortness of breath, fever, chills, nausea, vomiting, diarrhea, urinary or bladder incontinence. PE: AF, VSS HEENT- NC/AT; Neck- supple; Cor- RRR; Lungs- CTA B; Abd- benign; Ext- no sign of DVT; distal pulses difficult to assess CN- intact; Motor- 5/5 B LE and UE; Sensation- intact LT; DTR- hyporeflexic; + SLR on R at 50 degrees Labs reviewed; UA negative for blood CTA- L aortofemoral but minimal R sided disease (reported); multilevel lumbar DDD, spondylosis, facet hypertrophy, osteophytes, moderate to marked L3- 4 canal and lateral recess stenosis R > L; Moderate L5-S1 and L4-5 lateral recess stenosis Lumbar stenosis with r/o R LE radicular symptoms Vascular baseline eval per medical team PT for modalities Short pulse of oral steroids x 48 hrs Neurontin 100 mg tid and titrate up to 300 tid if needed No neurosurgical intervention indicated given no neuro deficit, age, and relatively new issue Consider LS spine MRI and pain management input for epidural injections if persistent pain
[2018-01-27 09:47] VITALS: BMI 27.2
[2018-01-27] MEDS ORDERED: HYDROCHLOROTHIAZIDE 25 MG TABLET (FP) PO SCH (10:00)
--- NOTE | 2018-01-27 10:07 | CONS ---
DATE OF CONSULTATION: DATE OF DICTATION: 01/27/2018 REQUESTING PHYSICIAN: Sheryl Robles MD TREATMENT MANAGER: Osiel Coy MD, Neurosurgery CHIEF COMPLAINT: Right lower extremity shooting pain. HISTORY OF PRESENT ILLNESS: The patient is an 82-year-old right-handed male with history of hypertension and hypercholesterolemia who complained of a 3-day history of acute onset right-sided hip area pain radiating down to the anterior thigh, knee, and the right guillory. Pain is rated at a 9 on a 1 to 10 scale. Pain is worse with movement. Pain does not change appreciably. It is there all the time. Nothing seems to make it better or worse. He denies any recent trauma or falls. He has no leg weakness, numbness or tingling and has no bowel or bladder incontinence. He has no fevers or chills. He denies any significant prior symptoms. He never has any lower back pain. PAST MEDICAL HISTORY: Significant for hypercholesterolemia and hypertension. CURRENT MEDICATIONS: Include Lovenox, Tenormin, Colace, baby aspirin and hydrochlorothiazide. ALLERGIES: There is no known drug allergy. FAMILY HISTORY: Noncontributory. SOCIAL HISTORY: Does not smoke and only drinks alcohol socially. He lives at home with his family. He is retired. REVIEW OF SYSTEMS: Otherwise negative for major constitutional, head, neck, cardiovascular, pulmonary, gastrointestinal, genitourinary, endocrinological, neurological or psychological problems except for the above. PHYSICAL EXAMINATION: Vital Signs: Temperature is 98.4, blood pressure is 150/72 with a pulse rate of 50, O2 saturation is 97% on room air. HEENT: Shows him to be normocephalic, atraumatic, anicteric. Neck: Supple with no carotid bruit. Cor: Demonstrated a regular rhythm. Lungs: Clear to auscultation bilaterally. Abdomen: Benign. Extremities: Show no obvious signs of DVT. Distal pulses are difficult to fully appreciate. Neurologic: He is awake, alert and oriented x3. He is Senegalese speaking. Cranial nerve examination intact II-XII. Motor examination shows 5/5 strength of the bilateral upper and lower extremities without fasciculation or atrophy. Sensory examination intact to light touch. Deep tendon reflexes are hyporeflexive throughout. There is no pathological long-tract sign. He has a positive straight-leg raise on the right side at about 50 degrees. Gait is not tested for safety reasons. LABORATORY: Shows white blood cell count of 6, hemoglobin is noted to be 15.7, platelet count is 176,000. INR is 1.1, the PTT is 28.7. Serum sodium is 136 and potassium is 4.6. BUN is 17 and creatinine 1.2. LFTs are normal except for a total bilirubin of 1.1. Troponin is less than 0.02. Urinalysis: Negative for blood and leukocyte esterase was negative. The preliminary report of the CTA of the aorta with runoff reported left lower extremity atherosclerotic disease but no significant right-sided disease. These images did demonstrate multilevel lumbar spondylosis especially in the upper and mid lumbar spine. There is facet hypertrophy at multiple levels. There is moderate to marked lateral recess and foraminal stenosis, right greater than left at the L3-4 level. There is also moderate lateral recess stenosis at L5-S1 and L4-5. There are bridging anterior osteophytes and slight kyphosis at upper lumbar spine. This is not a dedicated lumbar spine CT scan obviously. IMPRESSION: 1. Lumbar sacral spondylosis, stenosis, and degenerative disk disease with acute right lower extremity symptoms consistent with L4 radiculopathy. 2. Atherosclerosis. 3. Hypertension. 4. Hypercholesterolemia. RECOMMENDATIONS: The patient presents with a 3-day history of acute onset right-sided hip pain radiating down to the right anterior thigh and guillory. This is consistent with a right L4 distribution. He was reportedly found to have left greater than right lower extremity vascular atherosclerotic disease. Appropriate vascular followup should be obtained. As his symptoms are relatively new and there are no associated neurological deficits, right lower extremity, neurosurgical intervention is not indicated nor recommended. I would recommend a short pulse of oral steroids as well as gabapentin. Gabapentin 100 mg 3 times a day will be started and it could be titrated up to 300 mg 3 times a day. A short course of physical therapy may also be helpful to help him recover his function and to help with pain control. If medication and physical therapy do not help him adequately, an MRI lumbar spine could be considered as well as a pain management consultation with possible epidural steroid injection. The above was discussed with the patient at bedside. All questions were answered. OSIEL COY M.D. FAITH/[id number]
[2018-01-27] MEDS: ATENOLOL 50 MG TABLET (FP) PO SCH ×2 (11:34→11:35)
[2018-01-27] MEDS: ASPIRIN COATED 81 MG TABLET.EC PO SCH (11:34)
[2018-01-27] MEDS: DOCUSATE SODIUM 100 MG CAPSULE (FP) PO SCH (11:34)
[2018-01-27] MEDS: methylPREDNISolone 4 MG TABLET PO SCH ×4 (11:35→21:24)
[2018-01-27] MEDS: ENOXAPARIN NA (PORCINE) 40 MG/0.4 ML DISP.SYRIN SQ SCH (11:35)
--- NOTE | 2018-01-27 11:49 | PN ---
Progress Note (short form) - Note Progress Note: Vascular Surgery CTA reviewed. No signs of any disease in Aorta or in the right leg. In the left leg there is anterior tibial artery disease. Neurosurgery input well appreciated. No need for any vascular intervention since CTA is normal Medical management Franklin Vick DO
--- NOTE | 2018-01-27 12:49 | HOSP ---
Subjective - Review of Symptoms Events since last encounter: Patient is c/o having LE pain, no nausea or vomiting seen by neurosurgeon and added decadron for pain which helped his pain Initial Vital Signs Temp Pulse Resp BP Pulse Ox 98.4 F 54 L 18 129/53 L 97 01/27/18 00:44 01/27/18 00:44 01/27/18 00:44 01/27/18 00:44 01/27/18 00:44 Vital Signs Temperature 98 F 01/27/18 11:30 Pulse Rate 50 L 01/27/18 11:30 Respiratory Rate 20 01/27/18 11:30 Blood Pressure 124/62 01/27/18 11:30 O2 Sat by Pulse Oximetry (%) 95 01/27/18 09:50 GENERAL: AAOx3. NAD. Comfortable. Kazakh-speaking. HEENT: AT/NC. EOMI. ANDRE. Moist mucus membranes. NECK: Normal range of motion, supple without lymphadenopathy, JVD, or masses. LUNGS: CTA B/L. No wheezes noted. HEART: RRR. Normal S1, S2. No murmurs noted. ABDOMEN: Soft, NT/ND. +BS in all 4Qs. No masses or bruits. MUSCULOSKELETAL: Normal range of motion at all joints. No bony deformities or tenderness. No CVA tenderness. EXTREMITIES: 2+ pulses, warm, No calf tenderness. 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 Normal speech. PSYCHIATRIC: Cooperative. Good eye contact. Appropriate mood and affect. SKIN: Warm, dry, normal turgor, no rashes or lesions noted, normal capillary refill. CBCD WBC 6.0 K/mm3 (4.0-10.0) 01/27/18 02:01 RBC 4.57 M/mm3 (4.00-5.60) 01/27/18 02:01 Hgb 15.7 GM/dL (11.7-16.9) 01/27/18 02:01 Hct 43.5 % (35.4-49) 01/27/18 02:01 MCV 95.2 fl (80-96) 01/27/18 02:01 MCHC 36.1 g/dl (32.0-35.9) H 01/27/18 02:01 RDW 11.8 % (11.9-15.9) L 01/27/18 02:01 Plt Count 176 K/MM3 (134-434) 01/27/18 02:01 MPV 8.1 fl (7.5-11.1) 01/27/18 02:01 CMP Sodium 136 mmol/L (136-145) 01/27/18 02:01 Potassium 4.6 mmol/L (3.5-5.1) 01/27/18 02:01 Chloride 100 mmol/L (98-107) 01/27/18 02:01 Carbon Dioxide 28 mmol/L (21-32) 01/27/18 02:01 Anion Gap 8 MMOL/L (8-16) 01/27/18 02:01 BUN 17 mg/dL (7-18) 01/27/18 02:01 Creatinine 1.2 mg/dL (0.55-1.3) 01/27/18 02:01 Creat Clearance w eGFR 57.82 (>60) 01/27/18 02:01 Random Glucose 99 mg/dL (74-106) 01/27/18 02:01 Calcium 9.3 mg/dL (8.5-10.1) 01/27/18 02:01 Total Bilirubin 1.1 mg/dL (0.2-1) H 01/27/18 02:01 AST 29 U/L (15-37) 01/27/18 02:01 ALT 20 U/L (13-61) 01/27/18 02:01 Alkaline Phosphatase 60 U/L (45-117) 01/27/18 02:01 Total Protein 7.5 g/dl (6.4-8.2) 01/27/18 02:01 Albumin 3.6 g/dl (3.4-5.0) 01/27/18 02:01 CARDIAC ENZYMES Creatine Kinase 63 IU/L (26-308) 01/27/18 10:00 Troponin I < 0.02 ng/ml (0.00-0.05) 01/27/18 02:01 Current Medications Generic Name Dose Route Start Last Admin Trade Name Freq PRN Reason Stop Dose Admin Aspirin 81 mg 01/27/18 10:00 01/27/18 11:34 Ecotrin - PO 81 mg DAILY DANIEL Administration Docusate Sodium 100 mg 01/27/18 10:00 12/22/18 11:34 Colace - PO 100 mg DAILY DANIEL Administration Enoxaparin Sodium 40 mg 01/27/18 10:00 01/27/18 11:35 Lovenox - SQ 40 mg DAILY DANIEL Administration Gabapentin 100 mg 01/27/18 14:00 Neurontin - PO TID DANIEL Hydrochlorothiazide 25 mg 01/27/18 10:00 01/27/18 11:34 Hctz - PO 25 mg DAILY DANIEL Administration Sodium Chloride 1,000 mls @ 100 mls/hr 01/27/18 05:30 01/27/18 06:00 Normal Saline - IV 100 mls/hr ASDIR DANIEL Administration Methylprednisolone 4 mg 01/27/18 10:00 01/27/18 11:35 Medrol - PO 4 mg QID DANIEL Administration Home Medications Medication Instructions Recorded Bisoprolol Fumarate 5 mg PO BID 03/05/17 Hydrochlorothiazide [Hctz -] 25 mg PO DAILY 03/05/17 Simvastatin 20 mg PO HS 03/05/17 Aspirin [Adult Aspirin] 81 mg PO DAILY 01/27/18 Docusate Sodium [Colace] 100 mg PO TID 01/27/18 Assessment and plan: 82 Kazakh-speaking male w/ pmhx of HTN, HLD, constipation who presents with R lower back pain radiating to the R anterior guillory. #Acute right lower back pain. (sciatica like pain) .Abdomen CTA with L ant tibial occlusion no R occlusion Vascular recs appreciated- Neurosx input apprec- 48 hr steroid taper to end today, Gabapentin increased to 200mg tid, PT consult. #HTN Sodium-controlled diet, Started on Lopressor 12.5mg bid, will discontinue hctz #HLD continue with Lipitor #Constipation cont home med: Colace 100 mg PO QD DVT Px: Lovenox 40 mg SQ QD Physical Examination Vital Signs: Vital Signs Temperature 98 F 01/27/18 11:30 Pulse Rate 50 L 01/27/18 11:30 Respiratory Rate 20 01/27/18 11:30 Blood Pressure 124/62 01/27/18 11:30 O2 Sat by Pulse Oximetry (%) 95 01/27/18 09:50 Labs: CBC, BMP 01/27/18 02:01 01/27/18 02:01
[2018-01-27] MEDS: GABAPENTIN 100 MG CAPSULE (FP) PO SCH ×2 (15:02→21:24)
[2018-01-27] MEDS ORDERED: ACETAMINOPHEN 325 MG TABLET (FP) PO PRN (15:43)
--- NOTE | 2018-01-27 15:44 | EKG ---
Test Reason : Blood Pressure : / mmHG Vent. Rate : 074 BPM Atrial Rate : 074 BPM P-R Int : 186 ms QRS Dur : 140 ms QT Int : 430 ms P-R-T Axes : 061 007 155 degrees QTc Int : 477 ms NORMAL SINUS RHYTHM POSSIBLE LEFT ATRIAL ENLARGEMENT LEFT BUNDLE BRANCH BLOCK ABNORMAL ECG WHEN COMPARED WITH ECG OF 08-MAR-2017 03:05, LEFT BUNDLE BRANCH BLOCK IS NOW PRESENT Confirmed by SUMMER AVALOS, GERALD ([id number]) on 01/27/2018 3:44:41 PM Referred By: Confirmed By:GERALD WHEELER MD
[2018-01-27] MEDS ORDERED: PT OWN MED DRAWER 7, Y5N ONE ×3 (18:21→21:23)
[2018-01-28] MEDS: SODIUM CHLORIDE 1,000 ML IV SCH (05:33)
[2018-01-28] MEDS: GABAPENTIN 100 MG CAPSULE (FP) PO SCH ×4 (05:33→21:34)
--- NOTE | 2018-01-28 08:09 | PN ---
Teaching Attending Note Name of Resident: Glory Oconnell ATTENDING PHYSICIAN STATEMENT I saw and evaluated the patient. I reviewed the resident's note and discussed the case with the resident. I agree with the resident's findings and plan as documented. SUBJECTIVE: Patient's symptoms improving. OBJECTIVE: Vital Signs Temperature 98.0 F 01/28/18 06:00 Pulse Rate 60 01/28/18 06:00 Respiratory Rate 20 01/28/18 06:00 Blood Pressure 141/74 01/28/18 06:00 O2 Sat by Pulse Oximetry (%) 96 01/27/18 21:00 GENERAL: AAOx3. NAD. Comfortable. Greek-speaking. HEENT: AT/NC. EOMI. ANDRE. Moist mucus membranes. NECK: Normal range of motion, supple without lymphadenopathy, JVD, or masses. LUNGS: CTA B/L. No wheezes noted. HEART: RRR. Normal S1, S2. No murmurs noted. ABDOMEN: Soft, NT/ND. No masses or bruits appreciated. MUSCULOSKELETAL: Normal range of motion at all joints. No bony deformities or tenderness. No CVA tenderness. EXTREMITIES: 2+ pulses, warm, well-perfused. No calf tenderness, or edema. NEUROLOGICAL: Cranial nerves II-XII intact. Normal speech. PSYCHIATRIC: Cooperative. Good eye contact. Appropriate mood and affect. SKIN: Warm, dry, normal turgor, no rashes or lesions noted, normal capillary refill. CBCD WBC 6.0 K/mm3 (4.0-10.0) 01/27/18 02:01 RBC 4.57 M/mm3 (4.00-5.60) 01/27/18 02:01 Hgb 15.7 GM/dL (11.7-16.9) 01/27/18 02:01 Hct 43.5 % (35.4-49) 01/27/18 02:01 MCV 95.2 fl (80-96) 01/27/18 02:01 MCHC 36.1 g/dl (32.0-35.9) H 01/27/18 02:01 RDW 11.8 % (11.9-15.9) L 01/27/18 02:01 Plt Count 176 K/MM3 (134-434) 01/27/18 02:01 MPV 8.1 fl (7.5-11.1) 01/27/18 02:01 CMP Sodium 136 mmol/L (136-145) 01/27/18 02:01 Potassium 4.6 mmol/L (3.5-5.1) 01/27/18 02:01 Chloride 100 mmol/L (98-107) 01/27/18 02:01 Carbon Dioxide 28 mmol/L (21-32) 01/27/18 02:01 Anion Gap 8 MMOL/L (8-16) 01/27/18 02:01 BUN 17 mg/dL (7-18) 01/27/18 02:01 Creatinine 1.2 mg/dL (0.55-1.3) 01/27/18 02:01 Creat Clearance w eGFR 57.82 (>60) 01/27/18 02:01 Random Glucose 99 mg/dL (74-106) 01/27/18 02:01 Calcium 9.3 mg/dL (8.5-10.1) 01/27/18 02:01 Total Bilirubin 1.1 mg/dL (0.2-1) H 01/27/18 02:01 AST 29 U/L (15-37) 01/27/18 02:01 ALT 20 U/L (13-61) 01/27/18 02:01 Alkaline Phosphatase 60 U/L (45-117) 01/27/18 02:01 Total Protein 7.5 g/dl (6.4-8.2) 01/27/18 02:01 Albumin 3.6 g/dl (3.4-5.0) 01/27/18 02:01 CARDIAC ENZYMES Creatine Kinase 63 IU/L (26-308) 01/27/18 10:00 Troponin I < 0.02 ng/ml (0.00-0.05) 01/27/18 02:01 Current Medications Generic Name Dose Route Start Last Admin Trade Name Freq PRN Reason Stop Dose Admin Acetaminophen 650 mg 01/27/18 15:43 Tylenol - PO Q6H PRN PAIN Aspirin 81 mg 01/27/18 10:00 01/27/18 11:34 Ecotrin - PO 81 mg DAILY DANIEL Administration Docusate Sodium 100 mg 01/27/18 10:00 01/27/18 11:34 Colace - PO 100 mg DAILY DANIEL Administration Enoxaparin Sodium 40 mg 01/27/18 10:00 01/27/18 11:35 Lovenox - SQ 40 mg DAILY DANIEL Administration Gabapentin 100 mg 01/27/18 14:00 01/28/18 05:33 Neurontin - PO 100 mg TID DANIEL Administration Hydrochlorothiazide 25 mg 01/27/18 10:00 01/27/18 11:34 Hctz - PO 25 mg DAILY DANIEL Administration Sodium Chloride 1,000 mls @ 100 mls/hr 01/27/18 05:30 01/28/18 05:33 Normal Saline - IV 100 mls/hr ASDIR DANIEL Administration Methylprednisolone 4 mg 01/27/18 10:00 01/27/18 21:24 Medrol - PO 4 mg QID DANIEL Administration Home Medications Medication Instructions Recorded Bisoprolol Fumarate 5 mg PO BID 03/05/17 Hydrochlorothiazide [Hctz -] 25 mg PO DAILY 03/05/17 Simvastatin 20 mg PO HS 03/05/17 Aspirin [Adult Aspirin] 81 mg PO DAILY 01/27/18 Docusate Sodium [Colace] 100 mg PO TID 01/27/18 A/P: Patient is a 82 Greek-speaking male w/ pmhx of HTN, HLD, constipation who presents with R lower back pain radiating to the R anterior guillory. #Acute right lower back pain. Vascular recs appreciated- Neurosx input apprec. on steroid x 48hr as per neuro sx. Gabapentin increased to 200mg tid, PT consult. CTA shows disease in right TP trunk. will discuss with . #HTN Sodium-controlled diet, Started on Lopressor 12.5mg bid, discontinued hctz for now. #HLD continue with Lipitor #Constipation cont home med: Colace 100 mg PO QD DVT Px: Lovenox 40 mg SQ QD
[2018-01-28 08:41] LABS: BASO % 0.1 % (0-2.0); EOS % 0.6 % (0-4.5); HEMATOCRIT 41.5 % (35.4-49); HEMOGLOBIN 15.3 GM/dL (11.7-16.9); LYMPH % 25.5 % (8-40); MCH 35.3 pg (25.7-33.7); MEAN CELL VOLUME 95.6 fl (80-96); MEAN PLT VOLUME 8.5 fl (7.5-11.1); MONO % 6.9 % (3.8-10.2); NEUT % 66.9 % (42.8-82.8); PLATELET COUNT 169 K/MM3 (134-434); RBC 4.34 M/mm3 (4.00-5.60); RDW 11.8 % (11.9-15.9); WHITE BLOOD COUNT 5.7 K/mm3 (4.0-10.0)
[2018-01-28 08:50] LABS: ALBUMIN 3.2 g/dl (3.4-5.0); ALK PHOS 58 U/L (45-117); ANION GAP 9 MMOL/L (8-16); BILIRUBIN,TOTAL 1.3 mg/dL (0.2-1); BLOOD UREA NITROGEN 15 mg/dL (7-18); CALCIUM 8.3 mg/dL (8.5-10.1); CHLORIDE 99 mmol/L (98-107); CO2 30 mmol/L (21-32); GLUCOSE,RANDOM 102 mg/dL (74-106); POTASSIUM 3.8 mmol/L (3.5-5.1); SGOT/AST 13 U/L (15-37); SGPT/ALT 18 U/L (13-61); SODIUM 138 mmol/L (136-145); TOT PROT 6.8 g/dl (6.4-8.2)
--- NOTE | 2018-01-28 09:36 | PN ---
Physical Exam: SUBJECTIVE: Patient seen and examined. 82 yo [place]araguan speaking male who presented yesterday with 3 days worsening RLE pain described as radiation of R hp pain to anterior R lower extremity. Initially 11/15 this am, 3/10 earlier, currently not in pain. Pt has been walking in past with cane due to intermittent bilateral leg weakness. Pt awake, alert in bed having breakfast. No c/o this am feels pain is much improved. OBJECTIVE: Vital Signs Period Temp Pulse Resp BP Sys/Cardoza Pulse Ox Last 24 Hr 98 F-98.4 F 49-60 17-20 122-143/62-74 95-96 Vital Signs Temperature 97.9 F 01/28/18 10:25 Pulse Rate 53 L 01/28/18 10:25 Respiratory Rate 20 01/28/18 10:25 Blood Pressure 123/70 01/28/18 10:25 O2 Sat by Pulse Oximetry (%) 96 01/27/18 21:00 GENERAL: The patient is awake, alert, and fully oriented, in no acute distress. HEAD: Normal with no signs of trauma. EYES: PERRL, extraocular movements intact, sclera anicteric, conjunctiva clear. ENT: moist mucous membranes. NECK: full range of motion, supple. LUNGS: Breath sounds equal, clear to auscultation bilaterally, no wheezes, no crackles HEART: Regular rate and rhythm, S1, S2 without murmur, rub or gallop. ABDOMEN: Soft, nontender, nondistended, normoactive bowel sounds EXTREMITIES: 2+ pulses, warm, well-perfused, no edema. NEUROLOGICAL: Cranial nerves II through XII grossly intact. Symmetrical face and tongue. Normal sensations bilateral face. Reflexes 2+, Babinski downward b/ l. R Hip flexion and knee flexion 4/5, L hip flexion and knee flexion 5/5, b/l dorsiand plantar flexion 5/5, Shoulder shrug and biceps and triceps bilat 5/5 Normal tone. Normal speech, gait not observed. PSYCH: Normal mood, normal affect. CBC, BMP 01/28/18 06:30 01/28/18 06:30 Laboratory Results - last 24 hr 01/27/18 01/28/18 01/28/18 10:00 06:30 06:30 WBC 5.7 RBC 4.34 Hgb 15.3 Hct 41.5 MCV 95.6 MCH 35.3 H MCHC 37.0 H RDW 11.8 L Plt Count 169 MPV 8.5 Absolute Neuts (auto) 3.8 Neutrophils % 66.9 D Lymphocytes % 25.5 D Monocytes % 6.9 Eosinophils % 0.6 Basophils % 0.1 Nucleated RBC % 0 Sodium 138 Potassium 3.8 Chloride 99 Carbon Dioxide 30 Anion Gap 9 BUN 15 Creatinine 1.0 Creat Clearance w eGFR > 60 Random Glucose 102 Calcium 8.3 L Total Bilirubin 1.3 H AST 13 L ALT 18 Alkaline Phosphatase 58 Creatine Kinase 63 Total Protein 6.8 Albumin 3.2 L Active Medications Generic Name Dose Route Start Last Admin Trade Name Freq PRN Reason Stop Dose Admin Acetaminophen 650 mg 01/27/18 15:43 Tylenol - PO Q6H PRN PAIN Aspirin 81 mg 01/27/18 10:00 01/27/18 11:34 Ecotrin - PO 81 mg DAILY [facility] Administration Atorvastatin Calcium 40 mg 01/28/18 22:00 Lipitor - PO HS [facility] Docusate Sodium 100 mg 01/27/18 10:00 01/27/18 11:34 Colace - PO 100 mg DAILY [facility] Administration Enoxaparin Sodium 40 mg 01/27/18 10:00 01/27/18 11:35 Lovenox - SQ 40 mg DAILY [facility] Administration Gabapentin 200 mg 01/28/18 09:34 Neurontin - PO TID [facility] Methylprednisolone 4 mg 01/27/18 10:00 01/27/18 21:24 Medrol - PO 01/28/18 22:01 4 mg QID [facility] Administration Metoprolol Tartrate 12.5 mg 01/28/18 10:00 Lopressor - PO BID [facility] Active Medications Acetaminophen (Tylenol -) 650 mg PO Q6H PRN PRN Reason: PAIN Last Admin: 01/28/18 10:49 Dose: 650 mg Aspirin (Ecotrin -) 81 mg PO DAILY [facility] Last Admin: 01/28/18 10:36 Dose: 81 mg Atorvastatin Calcium (Lipitor -) 40 mg PO HS [facility] Docusate Sodium (Colace -) 100 mg PO DAILY [facility] Last Admin: 01/28/18 10:36 Dose: 100 mg Enoxaparin Sodium (Lovenox -) 40 mg SQ DAILY [facility] Last Admin: 01/28/18 10:38 Dose: 40 mg Gabapentin (Neurontin -) 200 mg PO TID [facility] Methylprednisolone (Medrol -) 4 mg PO QID [facility] Stop: 01/28/18 22:01 Last Admin: 01/28/18 10:37 Dose: 4 mg Metoprolol Tartrate (Lopressor -) 12.5 mg PO BID [facility] Last Admin: 01/28/18 10:36 Dose: 12.5 mg IMAGING: * Abdomen CTA: Atherosclerotic changes and segmental occlusion of L anterior tibial a., doesn't correspond to hx. No R vascular occlusion. * Duplex: No evidence of DVT. ASSESSMENT/PLAN: 82 [place]araguan-speaking male w/ pmhx of HTN, HLD, constipation who presents with R buttock pain radiating to the R anterior guillory. #R likely sciatica -Abdomen CTA with L ant tibial occlusion no R occlusion - Vascular recs appreciated- no occlusion so no need for intervention -Neurosx input apprec- 48 hr steroid taper to end today -Gabapentin increased to 200mg tid -PT consult -Not likely due to myopathy, CK trended down from 387>>63 -d/c iv fluids -TSh, B12 levels - Stop home simvastatin, start lipitor 40mg HS #HTN -Sodium-controlled diet -weight loss, exercise encouraged -Cont home meds: - d/c HCTZ 25 mg PD -Start Lopressor 12.5mg bid #HLD -Pain not likely due to myopathy, in view of atherosclerotic changes on imaging begin high intensity statins -CK levels within normal - Stop home simvastatin, start lipitor 40mg HS -ASA 81 daily #Constipation Cont home med: -Colace 100 mg PO QD #Prophylaxis DVT: Lovenox 40 mg SQ QD #Dispo: -For likely dc tomorrow, pending PT eval Visit type - Emergency Visit Emergency Visit: Yes ED Registration Date: 01/27/18 Care time: The patient presented to the Emergency Department on the above date and was hospitalized for further evaluation of their emergent condition. - New Patient This patient is new to me today: Yes Date on this admission: 01/28/18 - Critical Care Critical Care patient: No - Discharge Referral Referred to [facility] Med P.C.: No
[2018-01-28] MEDS ORDERED: PT OWN MED DRAWER 7, Y5N ONE (10:32)
[2018-01-28] MEDS: DOCUSATE SODIUM 100 MG CAPSULE (FP) PO SCH (10:36)
[2018-01-28] MEDS: METOPROLOL TARTRATE 25 MG TABLET (FP) PO SCH ×2 (10:36→21:34)
[2018-01-28] MEDS: ASPIRIN COATED 81 MG TABLET.EC PO SCH (10:36)
[2018-01-28] MEDS: methylPREDNISolone 4 MG TABLET PO SCH ×4 (10:37→21:35)
[2018-01-28] MEDS: ENOXAPARIN NA (PORCINE) 40 MG/0.4 ML DISP.SYRIN SQ SCH (10:38)
[2018-01-28] MEDS ORDERED: ATORVASTATIN CA 40 MG TABLET (FP) PO SCH (22:00)
[2018-01-28] MEDS ORDERED: ATORVASTATIN CA 20 MG TABLET (FP) PO SCH (22:00)
[2018-01-29] MEDS: GABAPENTIN 100 MG CAPSULE (FP) PO SCH ×2 (05:39→14:28)
[2018-01-29 08:21] LABS: BASO % 0.3 % (0-2.0); EOS % 1.7 % (0-4.5); HEMATOCRIT 42.2 % (35.4-49); HEMOGLOBIN 14.6 GM/dL (11.7-16.9); MCH 33.2 pg (25.7-33.7); MCHC 34.5 g/dl (32.0-35.9); MEAN CELL VOLUME 96.2 fl (80-96); MEAN PLT VOLUME 8.3 fl (7.5-11.1); MONO % 8.6 % (3.8-10.2); NEUT % 59.4 % (42.8-82.8); PLATELET COUNT 164 K/MM3 (134-434); RBC 4.39 M/mm3 (4.00-5.60); RDW 11.6 % (11.9-15.9); WHITE BLOOD COUNT 5.4 K/mm3 (4.0-10.0)
[2018-01-29 09:38] LABS: ALBUMIN 3.2 g/dl (3.4-5.0); ALK PHOS 52 U/L (45-117); ANION GAP 5 MMOL/L (8-16); BILIRUBIN,TOTAL 1.2 mg/dL (0.2-1); BLOOD UREA NITROGEN 19 mg/dL (7-18); CALCIUM 8.2 mg/dL (8.5-10.1); CHLORIDE 104 mmol/L (98-107); CO2 30 mmol/L (21-32); CREATININE 1.1 mg/dL (0.55-1.3); GLUCOSE,RANDOM 95 mg/dL (74-106); MAGNESIUM 2.3 mg/dL (1.8-2.4); PHOSPHOROUS 3.4 mg/dL (2.5-4.9); POTASSIUM 4.1 mmol/L (3.5-5.1); SGOT/AST 15 U/L (15-37); SGPT/ALT 19 U/L (13-61); SODIUM 139 mmol/L (136-145); TOT PROT 6.7 g/dl (6.4-8.2)
--- NOTE | 2018-01-29 10:07 | DS ---
Physical Exam: SUBJECTIVE: Patient seen and examined at bedside. No acute events overnight. OBJECTIVE: Vital Signs Temperature 98.6 F 01/29/18 09:09 Pulse Rate 64 01/29/18 09:09 Respiratory Rate 18 01/29/18 09:09 Blood Pressure 155/68 01/29/18 09:09 O2 Sat by Pulse Oximetry (%) 97 01/28/18 21:00 PHYSICAL EXAM GENERAL: AAOx3. NAD. Comfortable. [place]er-speaking. HEENT: AT/NC. EOMI. ANDRE. Moist mucus membranes. NECK: Normal range of motion, supple without lymphadenopathy, JVD, or masses. LUNGS: CTA B/L. No wheezes noted. HEART: RRR. Normal S1, S2. No murmurs noted. ABDOMEN: Soft, NT/ND. +BS in all 4Qs. No masses or bruits. MUSCULOSKELETAL: Normal range of motion at all joints. No bony deformities or tenderness. No CVA tenderness. UPPER EXTREMITIES: 2+ pulses, warm, well-perfused. No cyanosis. No clubbing. No peripheral edema. L LOWER EXTREMITIES: 2+ pulses, warm, well-perfused. No calf tenderness. No peripheral edema. Shiny skin noted on R lower leg. Dark discoloration noted on L foot and ankle area. NEUROLOGICAL: Cranial nerves II-XII intact. Normal speech. PSYCHIATRIC: Cooperative. Good eye contact. Appropriate mood and affect. SKIN: Warm, dry, normal turgor, no rashes or lesions noted, normal capillary refill. LABS CBCD WBC 5.4 K/mm3 (4.0-10.0) 01/29/18 07:15 RBC 4.39 M/mm3 (4.00-5.60) 01/29/18 07:15 Hgb 14.6 GM/dL (11.7-16.9) 01/29/18 07:15 Hct 42.2 % (35.4-49) 01/29/18 07:15 MCV 96.2 fl (80-96) H 01/29/18 07:15 MCHC 34.5 g/dl (32.0-35.9) 01/29/18 07:15 RDW 11.6 % (11.9-15.9) L 01/29/18 07:15 Plt Count 164 K/MM3 (134-434) 01/29/18 07:15 MPV 8.3 fl (7.5-11.1) 01/29/18 07:15 CMP Sodium 139 mmol/L (136-145) 01/29/18 07:15 Potassium 4.1 mmol/L (3.5-5.1) 01/29/18 07:15 Chloride 104 mmol/L (98-107) 01/29/18 07:15 Carbon Dioxide 30 mmol/L (21-32) 01/29/18 07:15 Anion Gap 5 MMOL/L (8-16) L 01/29/18 07:15 BUN 19 mg/dL (7-18) H 01/29/18 07:15 Creatinine 1.1 mg/dL (0.55-1.3) 01/29/18 07:15 Creat Clearance w eGFR > 60 (>60) 01/29/18 07:15 Calcium 8.2 mg/dL (8.5-10.1) L 01/29/18 07:15 Total Bilirubin 1.2 mg/dL (0.2-1) H 01/29/18 07:15 AST 15 U/L (15-37) 01/29/18 07:15 ALT 19 U/L (13-61) 01/29/18 07:15 Alkaline Phosphatase 52 U/L (45-117) 01/29/18 07:15 Total Protein 6.7 g/dl (6.4-8.2) 01/29/18 07:15 Albumin 3.2 g/dl (3.4-5.0) L 01/29/18 07:15 HOSPITAL COURSE: Date of Admission:01/27/18 IMAGING: * Abdomen CTA: Atherosclerotic changes and segmental occlusion of L anterior tibial a., doesn't correspond to hx. No R vascular occlusion. ADDENDUM: Segmental occlusion of tube peroneal trunk on R side w/ rapid reconstitution via collaterals. Anterior tibial artery occludes in mid calf region on the right. Posterior tibial artery is seen into ankle and foot. * Duplex: No evidence of DVT. 82 [place]er-speaking male w/ pmhx of HTN, HLD, constipation who presents with R buttock pain radiating to the R anterior guillory likely 2/2 sciatica. Due to new onset of symptoms, neurosurg was consulted. No neurosurg intervention was indicated given lack of neuro deficits, pt's age and fact that pt's symptoms were new and acute. He was subsequently treated with steroids and Gabapentin to help with the pain. Upon further imaging, abd CTA was done that showed segmental occlusion in R TP trunk with collaterals. Due to CTA findings, vasc surgery was consulted. Upon vasc surg eval, no intervention was indicated as pt' s symptoms improved markedly throughout hospital stay. Additionally, pt was started on Lopressor for HTN, and his home HCTZ was d/c'd. Pt was discharged home with VNS services and advised to follow up with his primary care physician , vasc surg, and pain mgmt doctor outpatient. He was also prescribed Gabapentin , Celebrex, and Protonix to take at home. Date of Discharge: 01/29/18 Minutes to complete discharge: 40 Discharge Summary Reason For Visit: PARESTESIS AND PAIN OF RIGHT EXTREMITY,PAIN Condition: Improved - Instructions Diet, Activity, Other Instructions: You were seen in the hospital for complaints of right leg pain. Imaging was done that showed multiple neurological abnormalities involving your spine. As a result, you were evaluated by a neurosurgeon, but you were not found to have an acute neurological condition. 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 Because of this finding, you were assessed by a vascular surgeon and found to have no intervention at this time. Your symptoms of right leg pain improved. You are being discharged home with visiting nurse services. MEDICAL RECOMMENDATIONS We have made the following changes to your medication list: Please stop taking Hydrochlorothiazide 25 mg. You may start taking Toprol XL 25 mg once a day. Please stop taking Zocor. You may start taking Atorvastatin 40 mg once at night. Please start taking Gabapentin 200 mg three times a day for your leg pain. Please start taking Celebrex 100 mg twice a day for 5 days. Please start taking Protonix 40 mg once a day for 5 days. Please continue taking all other home medications as directed. CONSULT RECOMMENDATIONS Please follow up with your primary care physician, Dr. Rinaldi, within 1 week. Please follow up with the pain doctor, Dr. Sp Lazcano, within 1 week for further evaluation of your pain. Please follow up with the vascular surgeon, Dr. Vick, within 1 week. If you experience persistent and worsening leg pain, numbness, tingling, difficulty walking, please proceed to your nearest emergency room immediately. Usted fue atendido en el hospital por quejas de dolor en la daniel [place]. Se tomaron imgenes que mostraban mltiples anomalas neurolgicas en la [place] vertebral. [place] resultado, un neurocirujano lo evalu, shavon no se encontr que tuviera maryann afeccin neurolgica aguda. Tambin se tomaron imgenes de britni vasos que mostraron un bloqueo significativo en la arteria de la pierna izquierda. Debido a misty hallazgo, un cirujano vascular lo evalu y se encontr que no jenelle ninguna intervencin en misty momento. Britni sntomas de dolor en la pierna derejossy mejoraron. Usted est siendo dado de ami con servicios de enfermera visitante. RECOMENDACIONES MEDICAS Hemos realizado los siguientes cambios en dale lista de medicamentos: Por favor, deje de kirill Hydrochlorothiazide 25 mg. Puede comenzar a kirill Toprol XL 25 mg maryann vez al da. Por favor, leidy de kirill Zocor. Puede comenzar a kirill Atorvastatin 40 mg maryann vez por la noche. Comience a kirill Gabapentin 200 mg chung veces al da para el dolor en la pierna. Comience a kirill Celebrex 100 mg dos veces al da marisa 5 gentile. Por favor, empiece a kirill Protonix 40 mg maryann vez al da marisa 5 gentile. Por favor contine tomando todos los otros medicamentos caseros segn las indicaciones. CONSULTE RECOMENDACIONES Por favor cayetano un seguimiento con dale mdico de atencin primaria, el Dr. Rinaldi , dentro de maryann semana. Por favor, cayetano un seguimiento con el doctor del dolor, el Dr. Sp Lazcano, dentro de 1 semana para maryann evaluacin adicional de dale dolor. Por favor cayetano un seguimiento con el cirujano vascular, el Dr. Vick, dentro de 1 semana. Si experimenta dolor de piernas persistente y que empeora, entumecimiento, hormigueo, dificultad para caminar, dirjase a la santosh de emergencias ms cercana de inmediato. Referrals: Lydia Landa MD [Primary Care Provider] - 1 Week Franklin Vick MD [Staff Physician] - 1 Week Sp Lazcano MD [Staff Physician] - 1 Week Disposition: VNS/HOME HEALTH CARE - Home Medications Comprehensive Discharge Medication List: Ambulatory Orders Aspirin [Adult Aspirin] 81 mg PO DAILY 01/27/18 Docusate Sodium [Colace] 100 mg PO TID 01/27/18 Amlodipine Besylate [Norvasc -] 5 mg PO DAILY #30 tablet 01/29/18 Atorvastatin Ca [Lipitor] 40 mg PO HS #30 tablet 01/29/18 Celecoxib [Celebrex] 100 mg PO BID #10 capsule 01/29/18 Gabapentin [Neurontin -] 100 mg PO TID #90 capsule 01/29/18 Metoprolol Succinate [Toprol Xl] 25 mg PO DAILY #30 tab.er.24h 01/29/18 Miscellaneous Medical Supply [Outpatient Order] 1 each ASDIR #1 misc Pantoprazole Sodium [Protonix] 40 mg PO DAILY #5 tablet.dr 01/29/18 Walker [Ultra-Light Rollator] 1 each DAILY #1 each 01/29/18 This patient is new to me today: No Emergency Visit: Yes ED Registration Date: 01/27/18 Care time: The patient presented to the Emergency Department on the above date and was hospitalized for further evaluation of their emergent condition. Critical Care patient: No - Discharge Referral Referred to [facility] Med P.C.: No
[2018-01-29] MEDS: ASPIRIN COATED 81 MG TABLET.EC PO SCH (10:24)
[2018-01-29] MEDS: ENOXAPARIN NA (PORCINE) 40 MG/0.4 ML DISP.SYRIN SQ SCH (10:24)
[2018-01-29] MEDS: METOPROLOL TARTRATE 25 MG TABLET (FP) PO SCH (10:24)
[2018-01-29] MEDS: DOCUSATE SODIUM 100 MG CAPSULE (FP) PO SCH (10:24)
--- NOTE | 2018-01-29 13:44 | PN ---
Progress Note (short form) - Note Progress Note: Vascular Surgery Pt seen and examined. Pt walking in hallway. On exam pt has a palpable PT pulse. No signs of any ischemia. CTA shows disease in right TP trunk. Pt feels better, but still has pain in lower back. CAn see pt as outpt , for vascular workup. Franklin Vick DO
--- NOTE | 2018-01-29 14:56 | PN ---
Teaching Attending Note Name of Resident: Roberta Melgoza ATTENDING PHYSICIAN STATEMENT I saw and evaluated the patient. I reviewed the resident's note and discussed the case with the resident. I agree with the resident's findings and plan as documented. SUBJECTIVE: Patient has less pain today , would like to go home. OBJECTIVE: Vital Signs Temperature 98.6 F 01/29/18 09:09 Pulse Rate 64 01/29/18 09:09 Respiratory Rate 18 01/29/18 09:09 Blood Pressure 155/68 01/29/18 09:09 O2 Sat by Pulse Oximetry (%) 95 01/29/18 10:00 GENERAL: AAOx3. NAD. Comfortable. Northern Irish-speaking. HEENT: AT/NC. EOMI. ANDRE. Moist mucus membranes. NECK: Normal range of motion, supple without lymphadenopathy, JVD, or masses. LUNGS: CTA B/L. No wheezes noted. HEART: RRR. Normal S1, S2. No murmurs noted. ABDOMEN: Soft, NT/ND. No masses or bruits appreciated. MUSCULOSKELETAL: Normal range of motion at all joints. No bony deformities or tenderness. No CVA tenderness. EXTREMITIES: 2+ pulses, warm, well-perfused. No calf tenderness, or edema. NEUROLOGICAL: Cranial nerves II-XII intact. Normal speech. PSYCHIATRIC: Cooperative. Good eye contact. Appropriate mood and affect. SKIN: Warm, dry, normal turgor, no rashes or lesions noted, normal capillary refill. CBCD WBC 5.4 K/mm3 (4.0-10.0) 01/29/18 07:15 RBC 4.39 M/mm3 (4.00-5.60) 01/29/18 07:15 Hgb 14.6 GM/dL (11.7-16.9) 01/29/18 07:15 Hct 42.2 % (35.4-49) 01/29/18 07:15 MCV 96.2 fl (80-96) H 01/29/18 07:15 MCHC 34.5 g/dl (32.0-35.9) 01/29/18 07:15 RDW 11.6 % (11.9-15.9) L 01/29/18 07:15 Plt Count 164 K/MM3 (134-434) 01/29/18 07:15 MPV 8.3 fl (7.5-11.1) 01/29/18 07:15 CMP Sodium 139 mmol/L (136-145) 01/29/18 07:15 Potassium 4.1 mmol/L (3.5-5.1) 01/29/18 07:15 Chloride 104 mmol/L (98-107) 01/29/18 07:15 Carbon Dioxide 30 mmol/L (21-32) 01/29/18 07:15 Anion Gap 5 MMOL/L (8-16) L 01/29/18 07:15 BUN 19 mg/dL (7-18) H 01/29/18 07:15 Creatinine 1.1 mg/dL (0.55-1.3) 01/29/18 07:15 Creat Clearance w eGFR > 60 (>60) 01/29/18 07:15 Random Glucose 95 mg/dL (74-106) 01/29/18 07:15 Calcium 8.2 mg/dL (8.5-10.1) L 01/29/18 07:15 Total Bilirubin 1.2 mg/dL (0.2-1) H 01/29/18 07:15 AST 15 U/L (15-37) 01/29/18 07:15 ALT 19 U/L (13-61) 01/29/18 07:15 Alkaline Phosphatase 52 U/L (45-117) 01/29/18 07:15 Total Protein 6.7 g/dl (6.4-8.2) 01/29/18 07:15 Albumin 3.2 g/dl (3.4-5.0) L 01/29/18 07:15 CARDIAC ENZYMES Creatine Kinase 63 IU/L (26-308) 01/27/18 10:00 Troponin I < 0.02 ng/ml (0.00-0.05) 01/27/18 02:01 Current Medications Generic Name Dose Route Start Last Admin Trade Name Freq PRN Reason Stop Dose Admin Acetaminophen 650 mg 01/27/18 15:43 01/28/18 10:49 Tylenol - PO 650 mg Q6H PRN Administration PAIN Aspirin 81 mg 01/27/18 10:00 01/29/18 10:24 Ecotrin - PO 81 mg DAILY DANIEL Administration Atorvastatin Calcium 40 mg 01/28/18 22:00 01/28/18 21:34 Lipitor - PO 40 mg HS DANIEL Administration Docusate Sodium 100 mg 01/27/18 10:00 01/29/18 10:24 Colace - PO 100 mg DAILY DANIEL Administration Enoxaparin Sodium 40 mg 01/27/18 10:00 01/29/18 10:24 Lovenox - SQ 40 mg DAILY DANIEL Administration Gabapentin 200 mg 01/28/18 09:45 01/29/18 14:28 Neurontin - PO 200 mg TID DANIEL Administration Metoprolol Tartrate 12.5 mg 01/28/18 10:00 01/29/18 10:24 Lopressor - PO 12.5 mg BID DANIEL Administration Home Medications Medication Instructions Recorded Aspirin [Adult Aspirin] 81 mg PO DAILY 01/27/18 Docusate Sodium [Colace] 100 mg PO TID 01/27/18 Amlodipine Besylate [Norvasc -] 5 mg PO DAILY #30 tablet 01/29/18 Atorvastatin Ca [Lipitor] 40 mg PO HS #30 tablet 01/29/18 Celecoxib [Celebrex] 100 mg PO BID #10 capsule 01/29/18 Gabapentin [Neurontin -] 100 mg PO TID #90 capsule 01/29/18 Metoprolol Succinate [Toprol Xl] 25 mg PO DAILY #30 tab.er.24h 01/29/18 Miscellaneous Medical Supply 1 each ASDIR #1 misc 01/29/18 [Outpatient Order] Pantoprazole Sodium [Protonix] 40 mg PO DAILY #5 tablet. 01/29/18 Kari [Ultra-Light Rollator] 1 each DAILY #1 each 01/29/18 ASSESSMENT AND PLAN: Patient is a 82 [place] Irish-speaking male w/ pmhx of HTN, HLD, constipation who presents with R lower back pain radiating to the R anterior guillory. #Acute right lower back pain. Vascular recs appreciated- Neurosx input apprec. on steroid x 48hr as per neuro sx. Gabapentin increased to 200mg tid, PT consult. CTA shows disease in right TP trunk. as per Dr. Lebron. w/u can be done as an outpatient. will give him celebryx x 5 days, kari Rx. #HTN Sodium-controlled diet, Started on Lopressor 12.5mg bid, discontinued hctz for now. #HLD continue with Lipitor #Constipation cont home med: Colace 100 mg PO QD patient can be discharged home.
[2018-01-29 15:28] VITALS: BP 140/80; PULSE 57; TEMP 98
== END 2018-01-29 16:18 | disposition home health service (06) | DRG 347 ==
LOC: JER 00:27 → JERBED 03:57 → UNDOADMOB 03:57 → INTOOBSV 03:57 → JERBED 05:25 → J5S 07:52 → UNDODISOB 01-29 16:18
PROVIDERS: ADMIT Internal Medicine; ATTEND Internal Medicine
PROC: 3E0337Z Introduction of Electrolytic and Water Balance Substance into Peripheral Vein, Percutaneous Approach (ICD-10-PCS; principal; 2018-01-27)
PROC: 3E013GC Introduction of Other Therapeutic Substance into Subcutaneous Tissue, Percutaneous Approach (ICD-10-PCS; 2018-01-27)
DX: M47.896 Other spondylosis, lumbar region (principal); M48.061 Spinal stenosis, lumbar region without neurogenic claudication; M51.16 Intervertebral disc disorders with radiculopathy, lumbar region; I70.90 Unspecified atherosclerosis; R20.2 Paresthesia of skin; M79.604 Pain in right leg; M54.5 Low back pain; G72.89 Other specified myopathies; R10.9 Unspecified abdominal pain; I10 Essential (primary) hypertension; E78.5 Hyperlipidemia, unspecified; K59.00 Constipation, unspecified
CPT/HCPCS: 36415; 71045-TC-FY; 75635-TC; 80053; 81003; 82550; 82553; 82607; 83735; 84100; 84443; 84484; 85025; 85379; 85610; 85730; 93005; 93010; 93970-TC; 96372; 97116-GP; 97161-GP; 99285-25; G0378; J7030

== ENCOUNTER 2018-10-11 17:08 | Emergency (ER) | payer OTHER ==
--- NOTE | 2018-10-11 17:21 | PDOC ---
Rapid Medical Evaluation Chief Complaint: Blood Pressure Problem Time Seen by Provider: 10/11/18 17:19 Medical Evaluation: Allergies Allergy/AdvReac Type Severity Reaction Status Date / Time No Known Allergies Allergy Verified 02/13/18 13:49 10/11/18 17:19 I have performed a brief in-person evaluation of this patient. The patient presents with a chief complaint of: dizziness Pertinent physical exam findings: No focal findings I have ordered the following: cardiac w/u The patient will proceed to the ED for further evaluation. Discharge Disposition - Diagnosis Dizziness - Referrals - Patient Instructions - Post Discharge Activity
[2018-10-11 17:22] VITALS: BMI 28.1
[2018-10-11 18:21] LABS: BASO % 0.5 % (0-2.0); EOS % 2.3 % (0-4.5); HEMATOCRIT 46.3 % (35.4-49); LYMPH % 27.6 % (8-40); MCH 33.4 pg (25.7-33.7); MCHC 34.6 g/dl (32.0-35.9); MEAN CELL VOLUME 96.4 fl (80-96); MEAN PLT VOLUME 7.7 fl (7.5-11.1); NEUT % 57.6 % (42.8-82.8); PLATELET COUNT 191 K/MM3 (134-434); RDW 12.1 % (11.9-15.9); WHITE BLOOD COUNT 4.6 K/mm3 (4.0-10.0)
[2018-10-11 18:33] LABS: INR 1.08 (0.83-1.09); PROTHROMBIN TIME (PATIENT) 12.8 SEC (9.7-13.0)
[2018-10-11 18:44] LABS: ALBUMIN 3.8 g/dl (3.4-5.0); ALK PHOS 60 U/L (45-117); ANION GAP 9 MMOL/L (8-16); BILIRUBIN,TOTAL 0.9 mg/dL (0.2-1); CALCIUM 9.3 mg/dL (8.5-10.1); CHLORIDE 94 mmol/L (98-107); CO2 34 mmol/L (21-32); CREATININE 1.1 mg/dL (0.55-1.3); GLUCOSE,RANDOM 95 mg/dL (74-106); LIPASE 80 U/L (73-393); MAGNESIUM 1.8 mg/dL (1.8-2.4); POTASSIUM 4.4 mmol/L (3.5-5.1); SGOT/AST 13 U/L (15-37); SGPT/ALT 17 U/L (13-61); SODIUM 136 mmol/L (136-145); TOT PROT 7.7 g/dl (6.4-8.2)
--- NOTE | 2018-10-11 20:11 | PDOC ---
History of Present Illness - General Chief Complaint: Blood Pressure Problem Stated Complaint: ABD PAIN/DIZZINESS Time Seen by Provider: 10/11/18 17:19 History Source: Patient Exam Limitations: No Limitations - History of Present Illness Initial Comments: 10/11/18 20:06 Trent Foster an 83M with PMH HTN, HLD presenting with hypertension with BLE weakness. Patient reports that this afternoon his BP was 135/120 and had headache with weakness in both of his legs was unable to walk, but now reports feeling much better and is able to stand and walk without issues. BP normally 127/70. Denies changes to vision, dizziness, SOB, chest pain, palpitations, leg swelling. Has had an episode of this in the past which was much worse, had abd pain and headache with SBP 200s, but is not having these symptoms at this time. Took his metoprolol this AM for BP as well as his other medications, has not had any issues with taking them. Denies urinary sx, N/V, C/D, abd pain. Past History - Past Medical History Allergies/Adverse Reactions: Allergies Allergy/AdvReac Type Severity Reaction Status Date / Time No Known Allergies Allergy Verified 10/11/18 17:22 Home Medications: Ambulatory Orders Aspirin [Adult Aspirin] 81 mg PO DAILY 01/27/18 Docusate Sodium [Colace] 100 mg PO TID 01/27/18 Amlodipine Besylate [Norvasc -] 5 mg PO DAILY #30 tablet 01/29/18 Atorvastatin Ca [Lipitor] 40 mg PO HS #30 tablet 01/29/18 Celecoxib [Celebrex] 100 mg PO BID #10 capsule 01/29/18 Gabapentin [Neurontin -] 100 mg PO TID #90 capsule 01/29/18 Metoprolol Succinate [Toprol Xl] 25 mg PO DAILY #30 tab.er.24h 01/29/18 Miscellaneous Medical Supply [Outpatient Order] 1 each ASDIR #1 misc Pantoprazole Sodium [Protonix] 40 mg PO DAILY #5 tablet. 01/29/18 Walker [Ultra-Light Rollator] 1 each MC DAILY #1 each 01/29/18 Anemia: No Asthma: No Cancer: No Cardiac Disorders: Yes (ARRHYTHMIA ?) CVA: No COPD: No CHF: No Dementia: No Diabetes: No GI Disorders: No Disorders: No HTN: Yes Hypercholesterolemia: Yes Liver Disease: No Seizures: No Thyroid Disease: No - Immunization History Immunization Up to Date: Yes - Suicide/Smoking/Psychosocial Hx Smoking Status: No Smoking History: Never smoked Have you smoked in the past 12 months: No Number of Cigarettes Smoked Daily: 0 Cigars Per Day: 0 Information on smoking cessation initiated: No Hx Alcohol Use: No Drug/Substance Use Hx: No Substance Use Type: None Hx Substance Use Treatment: No Review of Systems - Review of Systems Constitutional: No: Symptoms Reported HEENTM: No: Blurred Vision, Recent change in vision, Nose Congestion, Hearing Loss Respiratory: No: Cough, Shortness of Breath, Hemoptysis Cardiac (ROS): No: Chest Pain, Irregular Heart Rate, Palpitations, Chest Tightness ABD/GI: No: Constipated, Diarrhea, Nausea, Vomiting, Abdominal cramping : No: Burning, Dysuria, Discharge, Frequency, Flank Pain, Hematuria, Incontinence Musculoskeletal: No: Symptoms Reported Integumentary: No: Symptoms Reported Neurological: Yes: Headache, Weakness. No: Numbness, Paresthesia, Seizure, Tingling, Tremors, Dizziness Endocrine: No: Symptoms Reported Hematologic/Lymphatic: No: Symptoms Reported All Other Systems: Reviewed and Negative *Physical Exam - Vital Signs Last Vital Signs Temp Pulse Resp BP Pulse Ox 97.9 F 58 L 19 138/65 100 10/11/18 19:28 10/11/18 19:28 10/11/18 19:28 10/11/18 19:28 10/11/18 19:28 - Physical Exam General Appearance: Yes: Nourished, Appropriately Dressed. No: Apparent Distress HEENT: positive: EOMI, ANDRE, Normal Voice, Symmetrical, Pharynx Normal. negative: Scleral Icterus (R), Scleral Icterus (L), Pharyngeal Erythema, Tonsillar Exudate, Tonsillar Erythema, Nasal Congestion, Rhinorrhea Neck: positive: Trachea midline, Normal Thyroid, Supple. negative: Tender, Rigid, Decreased range of motion, Lymphadenopathy (R), Lymphadenopathy (L) Respiratory/Chest: positive: Lungs Clear, Normal Breath Sounds. negative: Respiratory Distress, Crackles, Rales, Rhonchi Cardiovascular: positive: Regular Rhythm, Regular Rate. negative: Murmur Gastrointestinal/Abdominal: positive: Normal Bowel Sounds, Flat, Soft. negative : Tender, Guarding, Rebound Male Genitalia: positive: normal genitalia Musculoskeletal: positive: Normal Inspection. negative: CVA Tenderness Extremity: positive: Normal Capillary Refill, Normal Inspection, Normal Range of Motion, Other (5/5 motor stength to BLE, no edema or swelling noted). negative: Tender, Pedal Edema, Swelling Integumentary: positive: Normal Color, Dry, Warm Neurologic: positive: Fully Oriented, Alert, Normal Mood/Affect, Normal Response ED Treatment Course - LABORATORY CBC & Chemistry Diagram: 10/11/18 18:02 10/11/18 18:02 - ADDITIONAL ORDERS Additional order review: Laboratory Results 10/11/18 10/11/18 18:02 18:02 PT with INR 12.80 INR 1.08 Sodium 136 Potassium 4.4 Chloride 94 L Carbon Dioxide 34 H Anion Gap 9 BUN 17.0 Creatinine 1.1 Est GFR (CKD-EPI)AfAm 71.07 Est GFR (CKD-EPI)NonAf 61.32 Random Glucose 95 Calcium 9.3 Magnesium 1.8 Total Bilirubin 0.9 AST 13 L ALT 17 Alkaline Phosphatase 60 Creatine Kinase 58 Troponin I < 0.02 Total Protein 7.7 Albumin 3.8 Lipase 80 10/11/18 18:02 RBC 4.80 MCV 96.4 H MCHC 34.6 RDW 12.1 MPV 7.7 Neutrophils % 57.6 Lymphocytes % 27.6 Monocytes % 12.0 H Eosinophils % 2.3 Basophils % 0.5 Medical Decision Making - Medical Decision Making 10/11/18 20:06 Trent Foster an 83M with PMH HTN, HLD presenting with hypertension with BLE weakness. Patient presentation is most concerning for AAA with rupture causing reduced iliac perfusion, but patient is continuously hypertensive and has been evaluated for AAA in the past by Dr. Vick, has gotten CT aorta with iliac runoff an BLE dopplers for venous insufficiency, presentation today is not particularly concerning. Patient has good neuro exam in both legs, no weakness, observed him standing and walking unassisted. Weakness and headache when hypertensive has since resolved. Reading 135/120 is questionable, may be abnormal reading from patient's BP cuff. Repeat BP in room is 150s/70s. Will evaluate for a cardiac etiology vs. cardiac damage such as ND via: CMP CBC CP ECG CXR ECG shows NSR with possible L atrial enlargement, no acutely concerning features , no changes from prior ECG. 10/11/18 21:06 Patient has no concerning features requiring inpatient admission. Hypertensive, no clinical signs of AAA rupture, no neurological deficits. Possibility of TIA considered, but presentation with bilateral LE weakness not consistent with TIA. 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 *DC/Admit/Observation/Transfer Diagnosis at time of Disposition: Headache Qualifiers: Headache type: unspecified Headache chronicity pattern: acute headache Intractability: not intractable Qualified Code(s): R51 - Headache Hypertension Qualifiers: Hypertension type: unspecified Qualified Code(s): I10 - Essential (primary) hypertension - Discharge Dispostion Disposition: HOME Condition at time of disposition: Stable Decision to Admit order: No - Referrals Referrals: Chana Marshall MD [Primary Care Provider] - Franklin Vick DO [Staff Physician] - - Patient Instructions Printed Discharge Instructions: DI for High Blood Pressure, DI for Headache, How to Monitor Your Blood Pressure at Home Additional Instructions: Hoy fue evaluado por dolor de michelle, presin arterial ami y debilidad en las piernas. Hemos realizado anlisis de kishan y no vemos hallazgos anormales ni signos de robert cardaco. Taylor ECG no muestra signos de un ataque al corazn. Taylor radiografa de trax parece normal. Taylor presin arterial ami y dolor de michelle parecen ser un evento temporal que desde entonces se markham resuelto. No creemos que tenga maryann enfermedad ms preocupante, betty un trastorno neurolgico o un aneurisma artico que necesite ms estudios en misty momento. Maryann recomendacin es que puede tener un manguito de presin arterial inexacto. Asegrese de que la mquina que usa para controlar taylor presin arterial sea del tamao correcto. Para los prximos gentile, registre cul es taylor presin arterial cada da al mismo tiempo para verificar; solo necesita hacer esto maryann vez al da , ya que taylor presin arterial cambia a lo brady del da normalmente. Xin un seguimiento con taylor mdico de atencin primaria en los prximos 3 gentile para evaluar an ms taylor presin arterial y posiblemente realizar cambios en bill medicamentos para la presin arterial. Tambien, por favor wendy al Dr. Vick si tiene mas dolor de los piernas. Si experimenta un dolor de michelle que empeora, dolor en el pecho, nuseas, vmitos, dolor abdominal, no puede caminar, tiene entumecimiento en los brazos o las piernas, o tiene cualquier otro sntoma nuevo o preocupante, regrese a la santosh de emergencias ms cercana. Print Language: GABONESE - Post Discharge Activity
--- NOTE | 2018-10-11 20:33 | PDOC ---
Attending Attestation - Resident Resident Name: Joe Mauricio - ED Attending Attestation I have performed the following: I have examined & evaluated the patient, The case was reviewed & discussed with the resident, I agree w/resident's findings & plan, Exceptions are as noted - HPI HPI: 10/11/18 20:32 83M states that he had an episode of headache a/w leg paresthesias subsequently measured a home BP of 135s/120s no other complaints.
[2018-10-11 20:36] VITALS: BP 137/71; PULSE 55; TEMP 98
--- NOTE | 2018-10-12 14:09 | EKG ---
Test Reason : Blood Pressure : / mmHG Vent. Rate : 061 BPM Atrial Rate : 061 BPM P-R Int : 180 ms QRS Dur : 082 ms QT Int : 400 ms P-R-T Axes : 065 -03 067 degrees QTc Int : 402 ms NORMAL SINUS RHYTHM POSSIBLE LEFT ATRIAL ENLARGEMENT WHEN COMPARED WITH ECG OF 27-JAN-2018 02:38, LEFT BUNDLE BRANCH BLOCK IS NO LONGER PRESENT Confirmed by FARIBA SHIRLEY MD ([id number]) on 10/12/2018 2:09:21 PM Referred By: Confirmed By:FARIBA SHIRLEY MD
== END 2018-10-11 21:05 | disposition home or self-care (01) ==
LOC: JER 17:08
DX: R51 Headache (principal); I10 Essential (primary) hypertension; E78.00 Pure hypercholesterolemia, unspecified; I49.9 Cardiac arrhythmia, unspecified
CPT/HCPCS: 36415; 71046-TC-FY; 80053; 82550; 83690; 83735; 84484; 85025; 85610; 93005; 93010; 99284-25

== ENCOUNTER 2019-01-20 20:00 | Emergency (ER) | payer MEDICARE, OTHER ==
[2019-01-20 21:02] VITALS: TEMP 98.1; BMI 27.3
--- NOTE | 2019-01-20 22:35 | PDOC ---
History of Present Illness - General Chief Complaint: Blood Pressure Problem Stated Complaint: HIGH BLOOD PRESSURE Time Seen by Provider: 01/20/19 21:33 History Source: Patient Exam Limitations: No Limitations - History of Present Illness Initial Comments: 01/20/19 22:30 Patient is an 83-year-old male with history of hypertension, hyperlipidemia here with complaints of "my blood pressure is elevated" since yesterday. Patient states that he has been compliant with his blood pressure medications, but his pressures dips going up and down. States yesterday his systolics were 209 and today he was at 178. Patient denies any headache any dizziness, nausea , vomiting, shortness of breath, chest pain. He is just concerned about his blood pressure. PMD: Dr. Back PMHX: as above PSOCHX: neg etoh, durg, cig ALL: NKDA GENERAL/CONSTITUTIONAL: [No fever or chills. No weakness. No weight change.] HEAD, EYES, EARS, NOSE AND THROAT: [No change in vision. No ear pain or discharge. No sore throat.] CARDIOVASCULAR: [No chest pain or shortness of breath.] RESPIRATORY: [No cough, wheezing, or hemoptysis.] GASTROINTESTINAL: [No nausea, vomiting, diarrhea or constipation. No rectal bleeding.] GENITOURINARY: [No dysuria, frequency, or change in urination.] MUSCULOSKELETAL: [No joint or muscle swelling or pain. No neck or back pain.] SKIN AND BREASTS: [No rash or easy bruising.] NEUROLOGIC: [No headache, vertigo, loss of consciousness, or loss of sensation.] PSYCHIATRIC: [No depression or anxiety.] ENDOCRINE: [No increased thirst. No abnormal weight change.] HEMATOLOGIC/LYMPHATIC: [No anemia, easy bleeding, or history of blood clots.] ALLERGIC/IMMUNOLOGIC: [No hives or skin allergy. No latex allergy.] GENERAL: [The patient is awake, alert, and fully oriented, in no acute distress. ] HEAD: [Normal with no signs of trauma.] EYES: [Pupils equal, round and reactive to light, extraocular movements intact, sclera anicteric, conjunctiva clear.] ENT: [Ears normal, nares patent, oropharynx clear without exudates. Moist mucous membranes.] NECK: [Normal range of motion, supple without lymphadenopathy, JVD, or masses.] LUNGS: [Breath sounds equal, clear to auscultation bilaterally. No wheezes, and no crackles.] HEART: [Regular rate and rhythm, normal S1 and S2 without murmur, rub.] ABDOMEN: [Soft, nontender, normoactive bowel sounds. No guarding, no rebound. No masses.] EXTREMITIES: [Normal range of motion, no edema. No clubbing or cyanosis. No cords, erythema, or tenderness.] NEUROLOGICAL: [Cranial nerves II through XII grossly intact. Normal speech, normal gait.] PSYCH: [Normal mood, normal affect.] SKIN: [Warm, Dry, normal turgor, no rashes or lesions noted.] Past History - Past Medical History Allergies/Adverse Reactions: Allergies Allergy/AdvReac Type Severity Reaction Status Date / Time No Known Allergies Allergy Verified 10/11/18 17:22 Home Medications: Ambulatory Orders Aspirin [Adult Aspirin] 81 mg PO DAILY 01/27/18 Docusate Sodium [Colace] 100 mg PO TID 01/27/18 Amlodipine Besylate [Norvasc -] 5 mg PO DAILY #30 tablet 01/29/18 Atorvastatin Ca [Lipitor] 40 mg PO HS #30 tablet 01/29/18 Celecoxib [Celebrex] 100 mg PO BID #10 capsule 01/29/18 Gabapentin [Neurontin -] 100 mg PO TID #90 capsule 01/29/18 Metoprolol Succinate [Toprol Xl] 25 mg PO DAILY #30 tab.er.24h 01/29/18 Miscellaneous Medical Supply [Outpatient Order] 1 each ASDIR #1 misc Pantoprazole Sodium [Protonix] 40 mg PO DAILY #5 tablet.dr 01/29/18 Walker [Ultra-Light Rollator] 1 each MC DAILY #1 each 01/29/18 Anemia: No Asthma: No Cancer: No Cardiac Disorders: Yes (ARRHYTHMIA ?) CVA: No COPD: No CHF: No Dementia: No Diabetes: No GI Disorders: No Disorders: No HTN: Yes Hypercholesterolemia: Yes Liver Disease: No Seizures: No Thyroid Disease: No - Immunization History Immunization Up to Date: Yes - Psycho Social/Smoking Cessation Hx Smoking Status: No Smoking History: Never smoked Have you smoked in the past 12 months: No Number of Cigarettes Smoked Daily: 0 Cigars Per Day: 0 Information on smoking cessation initiated: No Hx Alcohol Use: No Drug/Substance Use Hx: No Substance Use Type: None Hx Substance Use Treatment: No *Physical Exam - Vital Signs Last Vital Signs Temp Pulse Resp BP Pulse Ox 98.1 F 57 L 22 H 164/66 99 01/20/19 20:10 01/20/19 20:10 01/20/19 20:10 01/20/19 20:10 01/20/19 20:10 Medical Decision Making - Medical Decision Making 01/20/19 22:30 Patient is an 83-year-old male with history of hypertension, hyperlipidemia here with complaints of "my blood pressure is elevated" since yesterday. Patient states that he has been compliant with his blood pressure medications, but his pressures dips going up and down. States yesterday his systolics were 209 and today he was at 178. Patient denies any headache any dizziness, nausea , vomiting, shortness of breath, chest pain. He is just concerned about his blood pressure. Patient here for elevation in his blood pressures. Blood pressure here in the ER are within normal limits. Patient remains asymptomatic in the emergency room. Will check blood pressure and discharge. At discharge patient was concerned about a slight headache given Tylenol 650 mg p.o. I discussed the physical exam findings, ancillary test results and final diagnoses with the patient. I answered all of the patient's questions. The patient was satisfied with the care received and felt comfortable with the discharge plan and treatment plan. The Patient agrees to follow up with the primary care physician within 24-72 hours. Discharge - Discharge Information Problems reviewed: Yes Clinical Impression/Diagnosis: Elevated blood pressure reading Condition: Stable Disposition: HOME - Follow up/Referral Referrals: Chana Marshall MD [Primary Care Provider] - - Patient Discharge Instructions Patient Printed Discharge Instructions: DI for High Blood Pressure Additional Instructions: Your Discharge Instructions: You must call primary care physician within 24 hours to arrange follow-up. Return to the Emergency Department with any new, persistent or worsening symptoms, for fever, chills, SOB, dizziness or any other concerning changes that may occur. Follow-up with your primary care doctor for closer monitoring of your blood pressure. - Post Discharge Activity
[2019-01-20] MEDS ORDERED: ACETAMINOPHEN 325 MG TABLET (FP) PO ONE (22:48)
[2019-01-20 23:25] VITALS: BP 162/65; PULSE 77
== END 2019-01-20 23:00 | disposition home or self-care (01) ==
LOC: JER 20:00
DX: Z01.31 Encounter for examination of blood pressure with abnormal findings (principal); E78.5 Hyperlipidemia, unspecified
CPT/HCPCS: 99281-25

== ENCOUNTER 2019-02-23 01:10 | Emergency (ER) | payer MEDICARE, OTHER ==
--- NOTE | 2019-02-23 01:54 | PDOC ---
Attending Attestation - Resident Resident Name: Caden,Devi - ED Attending Attestation I have performed the following: I have examined & evaluated the patient, The case was reviewed & discussed with the resident, I agree w/resident's findings & plan - HPI HPI: 02/23/19 07:06 Pt comes with diarrhea and mild nausea 02/23/19 07:12 - Physicial Exam PE: 02/23/19 07:12 Agree with resident exam - Medical Decision Making 02/23/19 07:12 Pt has 1st EKG LBBB;; 2nd EKG NSR Pt has 1 set of normal cardiac enzymes 2nd set will be pending Pt likely ought to be admitted to the tele unit for his dynamic EKG changes. 02/23/19 07:14 Day ER team will admit the patient to tele/hospitalists
[2019-02-23] MEDS ORDERED: FAMOTIDINE 20 MG/50 ML IVPB 20 MG/50 ML MG IVPB ONE ×2 (02:16→04:13)
[2019-02-23] MEDS ORDERED: MAG HYDROX/AL HYDROX/SIMETH 30 ML UNIT-DOSE CUP PO ONE (02:16)
[2019-02-23] MEDS ORDERED: SODIUM CHLORIDE 1,000 ML IV STA (02:16)
[2019-02-23 02:21] VITALS: TEMP 98.4; BMI 28.1
--- NOTE | 2019-02-23 02:46 | PDOC ---
History of Present Illness - General Chief Complaint: Diarrhea Stated Complaint: DIARRHEA Time Seen by Provider: 02/23/19 01:54 - History of Present Illness Initial Comments: 02/23/19 03:04 HPI: 83 y/o M with hx of HTN and HLD presenting with diarrhea. Symtpoms started around 11am and last until midnight. He also reports epigastric abdominal pain and increased distension. He states his pain feels likes gases, but that pain is also vague and cant characterize radiation. He reports he felt a little LH following the diarrhea; he had 7 episodes today. Also reports occasional nausea but no emesis. He denies fever, chest pain, SOB, sore throat, rhinorrea, cough, dysuria. Reprots mild blood when wiping but no clots or benjamín blood in toilet bowl. PMHx: as noted above ROS: as noted SHx: Denies tobacco use; no alcohol use; no rec drugs Allergies: NKDA ROS: GENERAL/CONSTITUTIONAL: No fever or chills. No weakness. HEAD, EYES, EARS, NOSE AND THROAT: No change in vision. No ear pain or discharge. No sore throat. CARDIOVASCULAR: No chest pain or shortness of breath RESPIRATORY: No cough, wheezing, or hemoptysis. GASTROINTESTINAL: +diarrhea; No nausea, vomiting, or constipation. GENITOURINARY: No dysuria, frequency, or change in urination. MUSCULOSKELETAL: No joint or muscle swelling or pain. No neck or back pain. SKIN: No rash NEUROLOGIC: No headache, vertigo, loss of consciousness, or change in strength/ sensation. ENDOCRINE: No increased thirst. No abnormal weight change HEMATOLOGIC/LYMPHATIC: No anemia, easy bleeding, or history of blood clots. ALLERGIC/IMMUNOLOGIC: No hives or skin allergy. PE: GENERAL: Awake, alert, and fully oriented, no acute distress HEAD: No signs of trauma, normocephalic, atraumatic EYES: EOMI, sclera anicteric, conjunctiva clear ENT: Auricles normal inspection, hearing grossly normal, nares patent, oropharynx clear without exudates. Moist mucosa NECK: Normal ROM, no lymphadenopathy LUNGS: No increased work of breathing, symmetrical chest rise, clear to auscultation bilaterally, no wheezes, crackles or rhonchi HEART: Regular rate, regular rhythm, normal S1 and S2, no murmur, peripheral pulses 2+ and equal bilaterally. ABDOMEN: Soft, distended with tympany to percussion, nontender. No guarding, no rebound. No masses. No CVAT MUSCULOSKELETAL: Normal inspection, FROM NEUROLOGICAL: Cranial nerves II through XII grossly intact. Normal speech, normal gait, no focal sensorimotor deficits SKIN: Warm, Dry, normal turgor, no rashes or lesions noted Past History - Past Medical History Allergies/Adverse Reactions: Allergies Allergy/AdvReac Type Severity Reaction Status Date / Time No Known Allergies Allergy Verified 10/11/18 17:22 Home Medications: Ambulatory Orders Aspirin [Adult Aspirin] 81 mg PO DAILY 01/27/18 Docusate Sodium [Colace] 100 mg PO TID 01/27/18 Amlodipine Besylate [Norvasc -] 5 mg PO DAILY #30 tablet 01/29/18 Atorvastatin Ca [Lipitor] 40 mg PO HS #30 tablet 01/29/18 Celecoxib [Celebrex] 100 mg PO BID #10 capsule 01/29/18 Gabapentin [Neurontin -] 100 mg PO TID #90 capsule 01/29/18 Metoprolol Succinate [Toprol Xl] 25 mg PO DAILY #30 tab.er.24h 01/29/18 Miscellaneous Medical Supply [Outpatient Order] 1 each ASDIR #1 misc Pantoprazole Sodium [Protonix] 40 mg PO DAILY #5 tablet.dr 01/29/18 Walker [Ultra-Light Rollator] 1 each MC DAILY #1 each 01/29/18 Anemia: No Asthma: No Cancer: No Cardiac Disorders: Yes (ARRHYTHMIA ?) CVA: No COPD: No CHF: No Dementia: No Diabetes: No GI Disorders: No Disorders: No HTN: Yes Hypercholesterolemia: Yes Liver Disease: No Seizures: No Thyroid Disease: No - Immunization History Immunization Up to Date: Yes - Psycho Social/Smoking Cessation Hx Smoking Status: No Smoking History: Never smoked Have you smoked in the past 12 months: No Number of Cigarettes Smoked Daily: 0 Cigars Per Day: 0 Information on smoking cessation initiated: Yes Hx Alcohol Use: No Drug/Substance Use Hx: No Substance Use Type: None Hx Substance Use Treatment: No *Physical Exam - Vital Signs Last Vital Signs Temp Pulse Resp BP Pulse Ox 98.4 F 70 17 125/60 98 02/23/19 01:10 02/23/19 01:10 02/23/19 01:10 02/23/19 01:10 02/23/19 01:10 Heart Score/ECG Review - History History: Slightly suspicious - Electrocardiogram EKG: Non specific repolarization disturbance - Age Age: >/= 65 - Risk Factors Risk Factors Heart Score: Yes Hx Hypercholesterolemia, Yes Hx Hypertension, Yes Hx Obesity Based on the list above the patient has:: >/=3 risk factors or Hx atherosclerotic disease - Troponin Troponin: </= normal limit - Score Heart Score - Total: 5 ED Treatment Course - LABORATORY CBC & Chemistry Diagram: 02/23/19 04:00 02/23/19 04:00 - RADIOLOGY Radiology Studies Ordered: Category Date Time Status CHEST PA & LAT [RAD] Stat Radiology 02/23/19 02:38 Ordered Medical Decision Making - Medical Decision Making 02/23/19 03:18 83 y/o M with hx of HTN and HLD presenting with diarrhea associated with abdominal discomfort. VSS, AF. PE with abdominal distension and tympany. DDx includes gastroenteritis, panc, ACS, pSBO -cbc, cmp, lipase, cardiac profile, ekg, cxr -ivf, maalox, pepcid 02/23/19 05:52 patient feels improved following intervention will rpt trop and reassess ekg with LBBB not present on last ekg cxr with cardiomegaly 02/23/19 06:00 will plan to admit for tele obs 02/23/19 06:51 will admit to AM team to followup admitting attending Discharge - Discharge Information Problems reviewed: Yes Clinical Impression/Diagnosis: LBBB (left bundle branch block), Epigastric abdominal pain Diarrhea Qualifiers: Diarrhea type: unspecified type Qualified Code(s): R19.7 - Diarrhea, unspecified Condition: Stable - Admission Yes - Follow up/Referral Referrals: Katelyn Alvarado DO [Primary Care Provider] - - Patient Discharge Instructions - Post Discharge Activity
[2019-02-23] MEDS ORDERED: MAG HYDROX/AL HYDROX/SIMETH 30 ML UNIT-DOSE CUP ONE (04:13)
[2019-02-23 04:28] LABS: BASO % 0.2 % (0-2.0); HEMATOCRIT 43.4 % (35.4-49); HEMOGLOBIN 15.3 GM/dL (11.7-16.9); LYMPH % 11.4 % (8-40); MCH 33.9 pg (25.7-33.7); MCHC 35.4 g/dl (32.0-35.9); MEAN CELL VOLUME 95.8 fl (80-96); MONO % 6.3 % (3.8-10.2); NEUT % 81.1 % (42.8-82.8); PLATELET COUNT 203 K/MM3 (134-434); RBC 4.53 M/mm3 (4.00-5.60); RDW 11.8 % (11.9-15.9); WHITE BLOOD COUNT 7.6 K/mm3 (4.0-10.0)
[2019-02-23 04:55] LABS: ALBUMIN 3.8 g/dl (3.4-5.0); BILIRUBIN,TOTAL 1.4 mg/dL (0.2-1); BLOOD UREA NITROGEN 21.8 mg/dL (7-18); CALCIUM 8.7 mg/dL (8.5-10.1); CREATININE 1.1 mg/dL (0.55-1.3); POTASSIUM 4.1 mmol/L (3.5-5.1); TOT PROT 7.5 g/dl (6.4-8.2)
[2019-02-23] MEDS ORDERED: ASPIRIN 81 MG CHEWABLE TABLETS PO ONE (05:54)
[2019-02-23] MEDS ORDERED: ASPIRIN 81 MG CHEWABLE TABLETS ONE (05:59)
--- NOTE | 2019-02-23 07:18 | PDOC ---
*Physical Exam - Vital Signs Last Vital Signs Temp Pulse Resp BP Pulse Ox 98.4 F 70 17 125/60 98 02/23/19 01:10 02/23/19 01:10 02/23/19 01:10 02/23/19 01:10 02/23/19 01:10 ED Treatment Course - LABORATORY CBC & Chemistry Diagram: 02/23/19 04:00 02/23/19 04:00 - ADDITIONAL ORDERS Additional order review: Laboratory Results 02/23/19 02/23/19 04:00 04:00 Sodium 137 Potassium 4.1 Chloride 101 Carbon Dioxide 29 Anion Gap 7 L BUN 21.8 H Creatinine 1.1 Est GFR (CKD-EPI)AfAm 71.07 Est GFR (CKD-EPI)NonAf 61.32 Random Glucose 103 Calcium 8.7 Total Bilirubin 1.4 H AST 19 ALT 18 Alkaline Phosphatase 58 Creatine Kinase 89 Troponin I 0.02 Total Protein 7.5 Albumin 3.8 Lipase 99 02/23/19 04:00 RBC 4.53 MCV 95.8 MCHC 35.4 RDW 11.8 L MPV 8.0 Neutrophils % 81.1 D Lymphocytes % 11.4 D Monocytes % 6.3 Eosinophils % 1.0 Basophils % 0.2 - Medications Given in the ED: ED Medications Discontinued Medications Generic Name Dose Route Start Last Admin Trade Name Freq PRN Reason Stop Dose Admin Al Hydroxide/Mg Hydroxide 30 ml 02/23/19 02:16 02/23/19 04:23 Mylanta Oral Suspension - PO 02/23/19 02:17 30 ml ONCE ONE Administration Aspirin 324 mg 02/23/19 05:54 02/23/19 06:06 Asa - PO 02/23/19 05:55 324 mg ONCE ONE Administration Sodium Chloride 1,000 mls @ 1,000 mls/hr 02/23/19 02:16 02/23/19 04:23 Normal Saline - IV 02/23/19 03:15 1,000 mls/hr ASDIR STA Administration Famotidine/Sodium Chloride 20 mg in 50 mls @ 100 mls/hr 02/23/19 02:16 04:23 Pepcid 20 Mg Premixed Ivpb - IVPB 02/23/19 02:45 100 mls/hr ONCE ONE Administration Medical Decision Making - Medical Decision Making 02/23/19 07:17 Pt received on sign out from Dr. Negrete. Repeat EKG and trop pending. Plan to d /c home if wnl. 02/23/19 08:10 Rpt trop 0.02. 02/23/19 08:13 Repeat EKG shows sinus alyx, HR 57, no axis deviation, QTc 436, no ST elevation /depression. HR in the 60s. Plan to d/c home with PCP and cards f/u. Discharge - Discharge Information Problems reviewed: Yes Clinical Impression/Diagnosis: LBBB (left bundle branch block), Epigastric abdominal pain Diarrhea Qualifiers: Diarrhea type: unspecified type Qualified Code(s): R19.7 - Diarrhea, unspecified Condition: Stable - Admission No - Follow up/Referral Referrals: Katelyn Alvarado DO [Primary Care Provider] - Atul Jacob MD [Staff Physician] - - Patient Discharge Instructions Additional Instructions: Please continue to stay hydrated and drink plenty of fluids. Please make a follow up appointment with a natural resource economist to discuss the left bundle branch block seen on one of your EKGs. If you experience any new, worsening, or concerning symptoms, including severe chest pain, difficulty breathing, blood in the vomit or stool, or any other concerns, please return to the emergency department. - Post Discharge Activity
[2019-02-23 08:13] VITALS: BP 111/61; PULSE 63
--- NOTE | 2019-02-23 09:18 | EKG ---
Test Reason : Blood Pressure : / mmHG Vent. Rate : 064 BPM Atrial Rate : 064 BPM P-R Int : 166 ms QRS Dur : 134 ms QT Int : 424 ms P-R-T Axes : 063 002 128 degrees QTc Int : 437 ms NORMAL SINUS RHYTHM LEFT BUNDLE BRANCH BLOCK ABNORMAL ECG WHEN COMPARED WITH ECG OF 11-OCT-2018 17:31, LEFT BUNDLE BRANCH BLOCK IS NOW PRESENT Confirmed by REGGIE HERNANDEZ MD ([id number]) on 02/23/2019 9:18:12 AM Referred By: Confirmed By:REGGIE HERNANDEZ MD
--- NOTE | 2019-02-23 13:14 | EKG ---
Test Reason : Blood Pressure : / mmHG Vent. Rate : 057 BPM Atrial Rate : 057 BPM P-R Int : 174 ms QRS Dur : 086 ms QT Int : 448 ms P-R-T Axes : 069 -12 026 degrees QTc Int : 436 ms SINUS BRADYCARDIA NONSPECIFIC T WAVE ABNORMALITY ABNORMAL ECG WHEN COMPARED WITH ECG OF 23-FEB-2019 03:57, LEFT BUNDLE BRANCH BLOCK IS NO LONGER PRESENT Confirmed by MARY AVALOS, REGGIE ([id number]) on 02/23/2019 1:14:21 PM Referred By: Confirmed By:REGGIE HERNANDEZ MD
== END 2019-02-23 08:35 | disposition home or self-care (01) ==
LOC: JER 01:10
PROC: 3E033GC Introduction of Other Therapeutic Substance into Peripheral Vein, Percutaneous Approach (ICD-10-PCS; principal; 2019-02-23)
DX: I44.7 Left bundle-branch block, unspecified (principal); R19.7 Diarrhea, unspecified; R10.13 Epigastric pain; I10 Essential (primary) hypertension; E78.5 Hyperlipidemia, unspecified
CPT/HCPCS: 36415; 71045-TC-FY; 80053; 82550; 83690; 84484; 85025; 93005; 93010; 96365; 99284-25; J7030

== ENCOUNTER 2022-03-27 18:39 | Emergency (ER) | payer OTHER ==
[2022-03-27 18:48] VITALS: TEMP 98.2; BMI 26.6
[2022-03-27 19:55] LABS: BASO % 2.1 % (0-2.0); EOS % 1.1 % (0-4.5); HEMATOCRIT 41.1 % (35.4-49); HEMOGLOBIN 14.8 GM/dL (11.7-16.9); LYMPH % 19.9 % (8-40); MCH 33.7 pg (25.7-33.7); MEAN CELL VOLUME 93.6 fl (80-96); MEAN PLT VOLUME 7.5 fl (7.5-11.1); MONO % 8.2 % (3.8-10.2); NEUT % 68.7 % (42.8-82.8); PLATELET COUNT 253 10^3/uL (134-434); RBC 4.39 M/mm3 (4.00-5.60); RDW 12.3 % (11.9-15.9); WHITE BLOOD COUNT 5.9 K/mm3 (4.0-10.0)
[2022-03-27 20:01] LABS: INR 1.14 (0.83-1.09); PROTHROMBIN TIME (PATIENT) 13.2 SEC (9.7-13.0)
[2022-03-27] MEDS ORDERED: MAG HYDROX/AL HYDROX/SIMETH 30 ML UNIT-DOSE CUP PO ONE (20:01)
[2022-03-27] MEDS ORDERED: FAMOTIDINE 20 MG/50 ML IVPB 20 MG/50 ML MG IVPB ONE ×2 (20:01→20:12)
[2022-03-27 20:08] LABS: CHLORIDE 88 mmol/L (98-107); SODIUM 121 mmol/L (136-145)
[2022-03-27 20:10] LABS: CALCIUM 9.2 mg/dL (8.5-10.1)
[2022-03-27 20:11] LABS: BLOOD UREA NITROGEN 11.5 mg/dL (7-18); CO2 26 mmol/L (21-32); GLUCOSE,RANDOM 109 mg/dL (74-106); LIPASE 15 U/L (73-393)
[2022-03-27] MEDS ORDERED: MAG HYDROX/AL HYDROX/SIMETH 30 ML UNIT-DOSE CUP ONE (20:12)
[2022-03-27 20:13] LABS: CREATININE 1.4 mg/dL (0.55-1.3)
[2022-03-27 20:15] LABS: BILIRUBIN,TOTAL 1.1 mg/dL (0.2-1); TOT PROT 8.6 g/dl (6.4-8.2)
[2022-03-27 20:16] LABS: ALK PHOS 76 U/L (45-117)
[2022-03-27 20:21] LABS: ANION GAP 8 MMOL/L (8-16); SGOT/AST 126 U/L (15-37); SGPT/ALT 32 U/L (13-61)
[2022-03-27 21:16] LABS: URINE APPEARANCE CLEAR; URINE BILIRUBIN NEGATIVE (NEGATIVE); URINE COLOR YELLOW; URINE GLUCOSE (UA) NEGATIVE (NEGATIVE); URINE KETONE NEGATIVE (NEGATIVE); URINE LEUK ESTERASE NEGATIVE (NEGATIVE); URINE NITRITE NEGATIVE (NEGATIVE); URINE PROTEIN NEGATIVE (NEGATIVE); URINE UROBILINOGEN 0.2 mg/dL (0.2-1.0)
[2022-03-27 21:36] LABS: CALCIUM 9.1 mg/dL (8.5-10.1)
[2022-03-27 21:40] LABS: CREATININE 1.2 mg/dL (0.55-1.3)
[2022-03-27 21:47] LABS: BLOOD UREA NITROGEN 10.4 mg/dL (7-18)
[2022-03-27] MEDS ORDERED: SODIUM CHLORIDE 0.9% 500 ML INFUS.BAG IV ONE (22:28)
[2022-03-28 00:47] VITALS: BP 140/76; PULSE 90; RESP 16
== END 2022-03-28 00:49 | disposition home or self-care (01) ==
LOC: JER 18:39
PROC: 3E033GC Introduction of Other Therapeutic Substance into Peripheral Vein, Percutaneous Approach (ICD-10-PCS; principal; 2022-03-27)
DX: R10.84 Generalized abdominal pain (principal); K92.2 Gastrointestinal hemorrhage, unspecified
CPT/HCPCS: 36415; 74176-TC; 80048; 80053; 81003; 82272; 83690; 85025; 85610; 87086; 93005; 93010; 96365; 99285-25

== ENCOUNTER 2023-02-04 00:39 | Observation (INO) | payer OTHER ==
[2023-02-04 00:49] VITALS: BMI 27.4
[2023-02-04] MEDS ORDERED: ACETAMINOPHEN 1000 MG/100 ML BAG IVPB ONE (01:23)
[2023-02-04] MEDS ORDERED: SODIUM CHLORIDE 0.9% 500 ML INFUS.BAG IV ONE (01:31)
[2023-02-04 02:38] LABS: BASO % 0.2 % (0-2.0); EOS % 1.8 % (0-4.5); HEMATOCRIT 42.9 % (35.4-49); HEMOGLOBIN 15.5 GM/dL (11.7-16.9); MCH 34.3 pg (25.7-33.7); MEAN CELL VOLUME 95.3 fl (80-96); MEAN PLT VOLUME 6.7 fl (7.5-11.1); MONO % 9.1 % (3.8-10.2); NEUT % 75.9 % (42.8-82.8); PLATELET COUNT 210 10^3/uL (134-434); RDW 12.1 % (11.9-15.9); WHITE BLOOD COUNT 5.7 K/mm3 (4.0-10.0)
[2023-02-04 02:51] LABS: POTASSIUM 3.8 mmol/L (3.5-5.1)
[2023-02-04 02:52] LABS: CALCIUM 9.8 mg/dL (8.5-10.1)
[2023-02-04 02:53] LABS: ALBUMIN 3.8 g/dl (3.4-5.0)
[2023-02-04] MEDS ORDERED: ACETAMINOPHEN INJECTION 100 ML IVPB ONE (02:55)
[2023-02-04 02:57] LABS: BILIRUBIN,TOTAL 2.6 mg/dL (0.2-1); CREATININE 1.1 mg/dL (0.55-1.3); TOT PROT 7.9 g/dl (6.4-8.2)
[2023-02-04] MEDS ORDERED: DEXAMETHASONE SOD PHOSPHATE 10 MG/1 ML VIAL IVPUSH ONE (03:19)
[2023-02-04] MEDS ORDERED: REMDESIVIR 200 MG in SODIUM CHLORIDE 250 ML IVPB ONE ×2 (03:20→10:00)
[2023-02-04] MEDS ORDERED: DEXAMETHASONE SOD PHOSPHATE 10 MG/1 ML VIAL ONE (03:34)
[2023-02-04 06:57] LABS: POTASSIUM 4.2 mmol/L (3.5-5.1)
[2023-02-04 06:58] LABS: CALCIUM 9.5 mg/dL (8.5-10.1)
[2023-02-04 07:02] LABS: CREATININE 1.1 mg/dL (0.55-1.3)
[2023-02-04] MEDS ORDERED: LOSARTAN POTASSIUM 25 MG TABLET PO ONE (08:02)
[2023-02-04] MEDS ORDERED: amLODIPine BESYLATE 5 MG TABLET (FP) PO SCH (10:00)
[2023-02-04] MEDS ORDERED: CHLORTHALIDONE 25 MG TABLET PO SCH (10:00)
[2023-02-04] MEDS ORDERED: CLOPIDOGREL BISULFATE 75 MG TABLET (FP) ONE (10:26)
[2023-02-04] MEDS ORDERED: amLODIPine BESYLATE 2.5 MG TABLET (FP) ONE (10:26)
[2023-02-04] MEDS ORDERED: ENOXAPARIN NA (PORCINE) 40 MG/0.4 ML DISP.SYRIN SQ ONE (10:26)
[2023-02-04] MEDS ORDERED: LOSARTAN POTASSIUM 25 MG TABLET ONE (10:26)
[2023-02-04] MEDS ORDERED: ASPIRIN 81 MG CHEWABLE TABLETS ONE (10:26)
[2023-02-04] MEDS: ASPIRIN 81 MG CHEWABLE TABLETS PO SCH (11:01)
[2023-02-04] MEDS: CLOPIDOGREL BISULFATE 75 MG TABLET (FP) PO SCH (11:02)
[2023-02-04] MEDS: amLODIPine BESYLATE 2.5 MG TABLET (FP) PO SCH (11:02)
[2023-02-04] MEDS: ENOXAPARIN NA (PORCINE) 40 MG/0.4 ML DISP.SYRIN SQ SCH (11:02)
[2023-02-04] MEDS ORDERED: ATORVASTATIN CA 80 MG TABLET (FP) ONE (21:45)
[2023-02-04] MEDS: ATORVASTATIN CA 80 MG TABLET (FP) PO SCH (21:49)
[2023-02-05 07:06] LABS: POTASSIUM 4.1 mmol/L (3.5-5.1)
[2023-02-05 07:11] LABS: ALBUMIN 3.8 g/dl (3.4-5.0); BLOOD UREA NITROGEN 22.8 mg/dL (7-18); CALCIUM 9.6 mg/dL (8.5-10.1)
[2023-02-05 07:14] LABS: CREATININE 1.4 mg/dL (0.55-1.3)
[2023-02-05 07:15] LABS: TOT PROT 7.8 g/dl (6.4-8.2)
[2023-02-05 08:34] LABS: BILIRUBIN,TOTAL 1.6 mg/dL (0.2-1)
[2023-02-05] MEDS: ASPIRIN 81 MG CHEWABLE TABLETS PO SCH (09:37)
[2023-02-05] MEDS: ENOXAPARIN NA (PORCINE) 40 MG/0.4 ML DISP.SYRIN SQ SCH (09:38)
[2023-02-05] MEDS: CLOPIDOGREL BISULFATE 75 MG TABLET (FP) PO SCH (09:38)
[2023-02-05] MEDS: amLODIPine BESYLATE 2.5 MG TABLET (FP) PO SCH (09:38)
[2023-02-05] MEDS: REMDESIVIR 100 MG in SODIUM CHLORIDE 230 ML IVPB SCH (09:38)
[2023-02-05] MEDS ORDERED: SODIUM CHLORIDE 1,000 ML IV SCH (17:45)
[2023-02-05] MEDS ORDERED: ATORVASTATIN CA 80 MG TABLET (FP) ONE (20:25)
[2023-02-05] MEDS: ATORVASTATIN CA 80 MG TABLET (FP) PO SCH (21:58)
[2023-02-06 07:19] VITALS: TEMP 98.1
[2023-02-06 09:11] LABS: BASO % 0.4 % (0-2.0); EOS % 1.8 % (0-4.5); HEMATOCRIT 41.8 % (35.4-49); HEMOGLOBIN 14.8 GM/dL (11.7-16.9); MCH 34.1 pg (25.7-33.7); MCHC 35.4 g/dl (32.0-35.9); MEAN CELL VOLUME 96.4 fl (80-96); MEAN PLT VOLUME 7.3 fl (7.5-11.1); NEUT % 60.8 % (42.8-82.8); PLATELET COUNT 197 10^3/uL (134-434); RBC 4.33 M/mm3 (4.00-5.60); RDW 11.9 % (11.9-15.9); WHITE BLOOD COUNT 5.2 K/mm3 (4.0-10.0)
[2023-02-06 09:56] LABS: POTASSIUM 3.4 mmol/L (3.5-5.1)
[2023-02-06 10:16] LABS: ALBUMIN 3.5 g/dl (3.4-5.0); BLOOD UREA NITROGEN 18.6 mg/dL (7-18); CALCIUM 9.4 mg/dL (8.5-10.1)
[2023-02-06 10:19] LABS: CREATININE 0.9 mg/dL (0.55-1.3)
[2023-02-06 10:20] LABS: BILIRUBIN,TOTAL 1.5 mg/dL (0.2-1); TOT PROT 6.8 g/dl (6.4-8.2)
[2023-02-06] MEDS ORDERED: CLOPIDOGREL BISULFATE 75 MG TABLET (FP) ONE (10:21)
[2023-02-06] MEDS ORDERED: ASPIRIN 81 MG CHEWABLE TABLETS ONE (10:21)
[2023-02-06] MEDS ORDERED: ENOXAPARIN NA (PORCINE) 40 MG/0.4 ML DISP.SYRIN SQ ONE (10:21)
[2023-02-06] MEDS ORDERED: amLODIPine BESYLATE 2.5 MG TABLET (FP) ONE (10:21)
[2023-02-06] MEDS: ASPIRIN 81 MG CHEWABLE TABLETS PO SCH (10:26)
[2023-02-06] MEDS: ENOXAPARIN NA (PORCINE) 40 MG/0.4 ML DISP.SYRIN SQ SCH (10:26)
[2023-02-06] MEDS: amLODIPine BESYLATE 2.5 MG TABLET (FP) PO SCH (10:26)
[2023-02-06] MEDS: CLOPIDOGREL BISULFATE 75 MG TABLET (FP) PO SCH (10:27)
[2023-02-06] MEDS: REMDESIVIR 100 MG in SODIUM CHLORIDE 230 ML IVPB SCH (11:19)
[2023-02-06 11:37] VITALS: BP 126/70; PULSE 65; RESP 20
== END 2023-02-06 13:06 | disposition home or self-care (01) ==
LOC: JER 00:39 → JERBED 03:21
PROVIDERS: ADMIT Internal Medicine
PROC: 3E033NZ Introduction of Analgesics, Hypnotics, Sedatives into Peripheral Vein, Percutaneous Approach (ICD-10-PCS; principal; 2023-02-04)
PROC: 3E023GC Introduction of Other Therapeutic Substance into Muscle, Percutaneous Approach (ICD-10-PCS; 2023-02-04)
PROC: 3E033GC Introduction of Other Therapeutic Substance into Peripheral Vein, Percutaneous Approach (ICD-10-PCS; 2023-02-04)
PROC: 3E033GC Introduction of Other Therapeutic Substance into Peripheral Vein, Percutaneous Approach (ICD-10-PCS; 2023-02-04)
DX: U07.1 COVID-19 (principal); E87.1 Hypo-osmolality and hyponatremia; I12.9 Hypertensive chronic kidney disease with stage 1 through stage 4 chronic kidney disease, or unspecified chronic kidney disease; N18.9 Chronic kidney disease, unspecified; N17.9 Acute kidney failure, unspecified; I1A.0 Resistant hypertension; E78.5 Hyperlipidemia, unspecified; I65.21 Occlusion and stenosis of right carotid artery; R42 Dizziness and giddiness; Z86.73 Personal history of transient ischemic attack (TIA), and cerebral infarction without residual deficits
CPT/HCPCS: 0241U-QW; 36415; 70450-TC; 71045-TC-FY; 80048; 80053; 82962; 84484; 85025; 93005; 93010; 96361; 96365; 96366; 96367; 96372; 96375; 99285-25; G0378; J0248; J1100